=== PATIENT | female | born 1950 | race African-American/Black ===

== ENCOUNTER 2020-11-25 13:05 | Inpatient (IN) | payer MEDICARE, MEDICAID, SELFPAY ==
[2020-11-25] VITALS (8 sets, daily range): BP systolic 119–145; BP diastolic 59–70; PULSE 84–102; RESP 20–48; TEMP 36.4–38.8; O2SAT 1–97; BMI 31.8
--- NOTE | 2020-11-25 | ECG_ITS ---
Test Reason : SOB Blood Pressure : / mmHG Vent. Rate : 102 BPM Atrial Rate : 102 BPM P-R Int : 152 ms QRS Dur : 078 ms QT Int : 368 ms P-R-T Axes : 038 -11 078 degrees QTc Int : 479 ms Sinus tachycardia Anterior infarct , age undetermined Abnormal ECG When compared with ECG of 19-JUN-2010 11:46, Vent. rate has increased BY [address] now depressed in Anterior leads T wave inversion now evident in Anterior leads QT has lengthened Referred By: Generic ED Physician Electronically Signed By:YOEL STORY
--- NOTE | 2020-11-25 13:42 | XR_ITS ---
EXAMINATION: XR CHEST CLINICAL INFORMATION: Fever. COMPARISON: None TECHNIQUE: Frontal view of the chest was obtained. FINDINGS: The lungs are hypoexpanded with increased interstitial markings but no consolidation seen. Heart size, pulmonary vascularity is normal. No gross bony abnormality. XR/XR chest 1V IMPRESSION: Increased vascular markings question mild interstitial pneumonitis versus vascular congestion.
--- NOTE | 2020-11-25 13:45 | ED_ITS ---
HPI - General Adult General Chief complaint: Failure to Thrive Stated complaint: FAILURE TO THRIVE,COVID + Time Seen by Provider: 11/25/20 13:33 Source: family and EMS Mode of arrival: EMS History of Present Illness HPI narrative: 70-year-old female with a past medical history of CVA with right- sided residual deficits, DM, seizures, schizoaffective, HLD, GI bleed, CAD s/p NSTEMI, CKD, COPD, COVID-19 positive on 11/15 presenting to the ED from SNF for increased lethargy, fever, and decreased p.o. intake. History unobtainable from patient due to baseline CVA/aphasia Onset (ago): day(s) Related Data Home Medications Medication Instructions Recorded Confirmed acetaminophen 650 mg PO Q4H PRN 11/25/20 11/25/20 aspirin 81 mg PO BID 11/25/20 11/25/20 atorvastatin 40 mg PO BEDTIME 11/25/20 11/25/20 calcium carbonate [Tums 500] 500 mg PO DAILY PRN 11/25/20 11/25/20 carbamazepine 300 mg PO BID 11/25/20 11/25/20 docusate sodium [Colace] 100 mg PO BID 11/25/20 11/25/20 haloperidol 15 mg PO BEDTIME 11/25/20 11/25/20 insulin aspart U-100 [Novolog See Rx Instructions .ROUTE .COMPLEX 11/25/20 11/25/20 Flexpen U-100 Insulin] insulin detemir U-100 [Levemir 32 unit SUBCUT BEDTIME 11/25/20 11/25/20 Flexpen] lithium carbonate 150 mg PO BID 11/25/20 11/25/20 metoprolol tartrate 12.5 mg PO BID 11/25/20 11/25/20 sennosides [senna] 17 mg PO BEDTIME 11/25/20 11/25/20 Allergies Allergy/AdvReac Type Severity Reaction Status Date / Time No Known Allergies Allergy Unverified 07/25/20 15:34 Review of Systems Review of Systems: ROS unobtainable due to patient's baseline CVA and aphasia Yes all other systems are reviewed and are negative PMFSH Past Medical History Attestation statement: The following information was validated with the patient. Social History Social History Advance Directives: No Advance Directives Information Provided: No Physical Exam Vital Signs: Vital Signs: Last Vital Signs Temp 98.6 F 11/25/20 17:00 Pulse 96 11/25/20 17:00 Resp 30 H 11/25/20 17:00 BP 128/62 11/25/20 17:00 Pulse Ox 97 11/25/20 17:00 Body Mass Index 31.8 Const: General: lethargic Orientation/consciousness: lethargic HENMT: Head: Yes normal to inspection Ears: hearing grossly normal bilaterally General nose exam: Normal external nose present Face and sinus: Yes normal facial exam Eyes: General: appearance normal, both eyes and all related structures Pupils: Equal, round and reactive pupils present EOM: EOMs intact bilaterally Neck: Neck: Yes normal visual inspection Resp: Other: Coarse lung sounds throughout Effort & Inspection: normal respiratory effort Auscultation: diminished lung sounds (Bibasilar) Cardio: Rate: regular rate Heart sounds: S1 normal heart sound present and S2 normal heart sound present GI: Inspection: Yes normal to inspection Palpation (GI): Soft to palpation, nontender, no guarding and not rigid Skin: Rashes: no rashes Wounds: no wounds Neuro: Other: Does not follow commands. Aphasic (baseline). Right-sided deficits from prior CVA Cranial nerves: Yes Equal, round and reactive pupils present Extrem: General: Yes normal to inspection Course Course Course Narrative: * UA infected. Cefepime should cover. Lactic acid 1.6 XR chest 1V IMPRESSION: Increased vascular markings question mild interstitial pneumonitis versus vascular congestion. * Anion gap of 23 and elevated creatinine/BUN 33/1.82 likely from dehydration/ALT mildly elevated, LDH/CRP elevated > plan for admission for further management * CXR showing increased vascular marking question mild interstitial pneumonitis process could congestion. BNP 47 Medical Decision Making [facility] Narrative Medical decision making narrative: 70-year-old female with a past medical history of CVA with right-sided residual deficits, DM, seizures, schizoaffective, HLD, GI bleed, CAD s/p NSTEMI, CKD, COPD, COVID-19 positive on 11/15 presenting to the ED from SNF for increased lethargy, fever, and decreased p.o. intake. On exam febrile, tachycardic, tachypneic, sating 97% on nasal cannula, coarse lung sounds throughout, does not follow commands, lethargic. Per SNF notes and EMS pts R sided deficits are chronic, appears to be more lethargic than normal. Concern for worsening COVID-19/viral syndrome vs Aspiration pneumonia vs UTI/other infectious or metabolic etiologies including dehydration. Low concern for CVA Plan: EKG, labs, UA, CXR, lactic/blood cultures, empiric IV antibiotics, anticipated admission Lab Data Result diagrams: 11/25/20 15:09 11/25/20 16:02 Labs: Lab Results 11/25/20 11/25/20 11/25/20 Range/Units 14:08 15:09 15:09 WBC 7.9 (4.8-10.8) X10*3/uL RBC 4.07 L (4.20-5.50) X10*6/uL Hgb 12.3 (12.0-16.0) g/dl Hct 42.7 (37-47) % MCV 104.9 H (80-98) fL MCH 30.2 (27.0-33.0) pg MCHC 28.8 L (31.0-35.0) g/dl RDW 14.0 (11.0-16.0) % Plt Count 261 (160-400) X10*3/uL MPV 9.2 L (9.4-12.3) fL Immature Gran % (Auto) 0.9 H (0.0-0.4) % Neut % (Auto) 71.8 (45-73) % Lymph % (Auto) 22.9 (20-40) % [place] % (Auto) 4.3 (2-11) % Eos % (Auto) 0.1 (0-4) % Baso % (Auto) 0.0 (0-2) % Lymph # (Auto) 1.8 (1.2-4.9) X10*3/uL [place] # (Auto) 0.3 (0.1-1.2) X10*3/uL Eos # (Auto) 0.0 (0.0-0.4) X10*3/uL Baso # (Auto) 0.0 (0.0-0.2) X10*3/uL Abs Immat Gran (auto) 0.07 H (0.00-0.03) X10*3/uL Absolute Neuts (auto) 5.7 (2.0-8.3) X10*3/uL Absolute Nucleated RBC 0.000 (0.0-0.012) X10*3/uL Nucleated RBC % (auto) 0.0 (0.0-0.2) /100WBC Smear Tech's Comments VERIFIED PT (10.8-13.0) SEC INR (0.9-1.1) APTT (24.1-38.0) SEC Sodium (135-145) mmol/L Potassium (3.3-5.1) mmol/l Chloride (96-108) mmol/L Carbon Dioxide (22-29) mmol/L Anion Gap (12-20) BUN (9-16) mg/dL Creatinine (0.5-1.4) mg/dL Estim Creat Clear Calc Estimated GFR Random Glucose (60-115) mg/dL Lactic Acid 1.6 (0.5-2.0) mmol/L Calcium (8.4-10.2) mg/dL Magnesium (1.6-2.6) mg/dL Ferritin (10-250) ng/mL Total Bilirubin (0.0-1.0) mg/dL Direct Bilirubin (0.0-0.5) mg/dL AST (5-31) U/L ALT (0-31) U/L Alkaline Phosphatase (39-117) U/L Lactate Dehydrogenase (122-220) U/L C-Reactive Protein (< or = 0.50) mg/dL B-Natriuretic Peptide (<100) pg/mL Total Protein (6.5-8.0) g/dL Albumin (3.5-5.0) g/dL Lipase (8-78) U/L Procalcitonin ng/mL Urine Color YELLOW Urine Appearance CLOUDY Urine pH 5.5 (5.0-8.0) Ur Specific [place] >= 1.030 H (1.005-1.025) Urine Protein 2+ H (NEG-TRACE) MG/DL Urine Glucose (UA) NEG (NEG) MG/DL Urine Ketones 15 (NEG) MG/DL Urine Blood 3+ H (NEG) Urine Nitrite NEG (NEG) Ur Leukocyte Esterase TRACE H (NEG) Urine RBC 76-150 H (0) /HPF Urine WBC 15-29 H (0-4) /HPF Ur Squamous Epith Cells 1+ /LPF Urine Bacteria 3+ /LPF 11/25/20 11/25/20 11/25/20 Range/Units 15:09 16:02 16:02 WBC (4.8-10.8) X10*3/uL RBC (4.20-5.50) X10*6/uL Hgb (12.0-16.0) g/dl Hct (37-47) % MCV (80-98) fL MCH (27.0-33.0) pg MCHC (31.0-35.0) g/dl RDW (11.0-16.0) % Plt Count (160-400) X10*3/uL MPV (9.4-12.3) fL Immature Gran % (Auto) (0.0-0.4) % Neut % (Auto) (45-73) % Lymph % (Auto) (20-40) % [place] % (Auto) (2-11) % Eos % (Auto) (0-4) % Baso % (Auto) (0-2) % Lymph # (Auto) (1.2-4.9) X10*3/uL [place] # (Auto) (0.1-1.2) X10*3/uL Eos # (Auto) (0.0-0.4) X10*3/uL Baso # (Auto) (0.0-0.2) X10*3/uL Abs Immat Gran (auto) (0.00-0.03) X10*3/uL Absolute Neuts (auto) (2.0-8.3) X10*3/uL Absolute Nucleated RBC (0.0-0.012) X10*3/uL Nucleated RBC % (auto) (0.0-0.2) /100WBC Smear Tech's Comments PT 15.3 H (10.8-13.0) SEC INR 1.3 H (0.9-1.1) APTT 29.1 (24.1-38.0) SEC Sodium 148 H (135-145) mmol/L Potassium 5.4 H (3.3-5.1) mmol/l Chloride 113 H (96-108) mmol/L Carbon Dioxide 17 L (22-29) mmol/L Anion Gap 23 H (12-20) BUN 33 H (9-16) mg/dL Creatinine 1.82 H (0.5-1.4) mg/dL Estim Creat Clear Calc 31.3 Estimated GFR 27 Random Glucose 300 H (60-115) mg/dL Lactic Acid (0.5-2.0) mmol/L Calcium 7.8 L (8.4-10.2) mg/dL Magnesium 2.7 H (1.6-2.6) mg/dL Ferritin (10-250) ng/mL Total Bilirubin 0.3 (0.0-1.0) mg/dL Direct Bilirubin 0.3 (0.0-0.5) mg/dL AST 54 H (5-31) U/L ALT 39 H (0-31) U/L Alkaline Phosphatase 104 (39-117) U/L Lactate Dehydrogenase 422 H (122-220) U/L C-Reactive Protein 18.06 H (< or = 0.50) mg/dL B-Natriuretic Peptide 47 (<100) pg/mL Total Protein 6.6 (6.5-8.0) g/dL Albumin 3.3 L (3.5-5.0) g/dL Lipase (8-78) U/L Procalcitonin ng/mL Urine Color Urine Appearance Urine pH (5.0-8.0) Ur Specific [place] (1.005-1.025) Urine Protein (NEG-TRACE) MG/DL Urine Glucose (UA) (NEG) MG/DL Urine Ketones (NEG) MG/DL Urine Blood (NEG) Urine Nitrite (NEG) Ur Leukocyte Esterase (NEG) Urine RBC (0) /HPF Urine WBC (0-4) /HPF Ur Squamous Epith Cells /LPF Urine Bacteria /LPF 11/25/20 11/25/20 Range/Units 16:02 16:02 WBC (4.8-10.8) X10*3/uL RBC (4.20-5.50) X10*6/uL Hgb (12.0-16.0) g/dl Hct (37-47) % MCV (80-98) fL MCH (27.0-33.0) pg MCHC (31.0-35.0) g/dl RDW (11.0-16.0) % Plt Count (160-400) X10*3/uL MPV (9.4-12.3) fL Immature Gran % (Auto) (0.0-0.4) % Neut % (Auto) (45-73) % Lymph % (Auto) (20-40) % [place] % (Auto) (2-11) % Eos % (Auto) (0-4) % Baso % (Auto) (0-2) % Lymph # (Auto) (1.2-4.9) X10*3/uL [place] # (Auto) (0.1-1.2) X10*3/uL Eos # (Auto) (0.0-0.4) X10*3/uL Baso # (Auto) (0.0-0.2) X10*3/uL Abs Immat Gran (auto) (0.00-0.03) X10*3/uL Absolute Neuts (auto) (2.0-8.3) X10*3/uL Absolute Nucleated RBC (0.0-0.012) X10*3/uL Nucleated RBC % (auto) (0.0-0.2) /100WBC Smear Tech's Comments PT (10.8-13.0) SEC INR (0.9-1.1) APTT (24.1-38.0) SEC Sodium (135-145) mmol/L Potassium (3.3-5.1) mmol/l Chloride (96-108) mmol/L Carbon Dioxide (22-29) mmol/L Anion Gap (12-20) BUN (9-16) mg/dL Creatinine (0.5-1.4) mg/dL Estim Creat Clear Calc Estimated GFR Random Glucose (60-115) mg/dL Lactic Acid (0.5-2.0) mmol/L Calcium (8.4-10.2) mg/dL Magnesium (1.6-2.6) mg/dL Ferritin 1163 H (10-250) ng/mL Total Bilirubin (0.0-1.0) mg/dL Direct Bilirubin (0.0-0.5) mg/dL AST (5-31) U/L ALT (0-31) U/L Alkaline Phosphatase (39-117) U/L Lactate Dehydrogenase (122-220) U/L C-Reactive Protein (< or = 0.50) mg/dL B-Natriuretic Peptide (<100) pg/mL Total Protein (6.5-8.0) g/dL Albumin (3.5-5.0) g/dL Lipase 86 H (8-78) U/L Procalcitonin 1.55 ng/mL Urine Color Urine Appearance Urine pH (5.0-8.0) Ur Specific [place] (1.005-1.025) Urine Protein (NEG-TRACE) MG/DL Urine Glucose (UA) (NEG) MG/DL Urine Ketones (NEG) MG/DL Urine Blood (NEG) Urine Nitrite (NEG) Ur Leukocyte Esterase (NEG) Urine RBC (0) /HPF Urine WBC (0-4) /HPF Ur Squamous Epith Cells /LPF Urine Bacteria /LPF ECG Data Attestation: I personally reviewed and interpreted this ECG as follows: Interpretation: EKG showing sinus tachycardia with a rate of 102. No STEMI. Artifact present. Discharge Plan Discharge Clinical Impression: Acute UTI, LANIE (acute kidney injury) Patient Disposition: Admitted As Inpatient
[2020-11-25 14:27] LABS: Glucose Urine UA NEG (NEG); Leukocyte Esterase Urine TRACE (NEG); Nitrite Urine NEG (NEG); PH 5.5 (5.0-8.0); Specific Gravity - Urine >= 1.030 (1.005-1.025); Urine Blood 3+ (NEG); Urine Ketones 15 MG/DL (NEG); Urine Protein 2+ MG/DL (NEG-TRACE)
[2020-11-25 14:28] LABS: Appearance Urine CLOUDY; Color Urine YELLOW
[2020-11-25 14:37] LABS: Bacteria Urine 3+ /LPF; Squamous Epithelial Cell Urine 1+ /LPF
--- NOTE | 2020-11-25 14:41 | PC.NURSE ---
pt difficult iv stick, multiple attempts unsuccessful, eugenia adams to attempt iv access via us guide.
[2020-11-25 15:19] LABS: Eosinophils Percent Auto 0.1 % (0-4); Hematocrit 42.7 % (37-47); Hemoglobin 12.3 g/dl (12.0-16.0); Imm Gran Abs Auto 0.07 X10*3/uL (0.00-0.03); Imm Gran Pct Auto 0.9 % (0.0-0.4); Lymphocytes Absolute Auto 1.8 X10*3/uL (1.2-4.9); Lymphocytes Percent Auto 22.9 % (20-40); MANUAL DIFF FLAG SCAN; Mean Corpuscular HGB Conc 28.8 g/dl (31.0-35.0); Mean Corpuscular Hemoglobin 30.2 pg (27.0-33.0); Mean Corpuscular Volume 104.9 fL (80-98); Mean Platelet Volume 9.2 fL (9.4-12.3); Monocytes Absolute Auto 0.3 X10*3/uL (0.1-1.2); Monocytes Percent Auto 4.3 % (2-11); Neutrophils Absolute Auto 5.7 X10*3/uL (2.0-8.3); Neutrophils Percent Auto 71.8 % (45-73); Platelet Count 261 X10*3/uL (160-400); Red Blood Count 4.07 X10*6/uL (4.20-5.50); SCAN SMEAR FLAG 1; White Blood Count 7.9 X10*3/uL (4.8-10.8)
[2020-11-25] MEDS: cefEPime HCl 2 GM in 0.9 % Sodium Chloride 50 ML IV (15:30)
[2020-11-25] MEDS: 0.9 % Sodium Chloride 500 ML 999 ML IV ×2 (15:31→17:24)
[2020-11-25 15:49] LABS: Lactic Acid 1.6 mmol/L (0.5-2.0)
[2020-11-25 15:58] LABS: SLIDE REVIEW VERIFIED
[2020-11-25 15:59] LABS: B Type Natriuretic Peptide 47 pg/mL (<100)
[2020-11-25 16:16] LABS: INTERNATIONAL NORM RATIO 1.3 (0.9-1.1); Prothrombin Time 15.3 SEC (10.8-13.0)
[2020-11-25 16:18] LABS: Partial Thromboplastin Time 29.1 SEC (24.1-38.0)
[2020-11-25 16:41] LABS: Alanine Aminotransferase 39 U/L (0-31); Albumin Level 3.3 g/dL (3.5-5.0); Alkaline Phosphatase 104 U/L (39-117); Anion Gap 23 (12-20); Aspartate Amino Transferase 54 U/L (5-31); Bilirubin Direct 0.3 mg/dL (0.0-0.5); Bilirubin Total 0.3 mg/dL (0.0-1.0); Blood Urea Nitrogen 33 mg/dL (9-16); C Reactive Protein 18.06 mg/dL (< or = 0.50); Calcium 7.8 mg/dL (8.4-10.2); Carbon Dioxide 17 mmol/L (22-29); Chloride 113 mmol/L (96-108); Creatinine Clr Calc Pharmacy 31.3; Estimated Glomerular Filt Rate 27; Glucose Random 300 mg/dL (60-115); Lactate Dehydrogenase 422 U/L (122-220); Magnesium 2.7 mg/dL (1.6-2.6); Potassium 5.4 mmol/l (3.3-5.1); Sodium 148 mmol/L (135-145); Total Protein 6.6 g/dL (6.5-8.0)
[2020-11-25 16:53] LABS: Lipase 86 U/L (8-78)
[2020-11-25 16:54] LABS: Procalcitonin 1.55 ng/mL
[2020-11-25 16:56] LABS: Ferritin 1163 ng/mL (10-250)
--- NOTE | 2020-11-25 17:02 | PC.NURSE ---
us guided iv appears to have infiltrated. provider aware. will attempt for further access.
--- NOTE | 2020-11-25 19:58 | P.HPHOSP_ITS ---
History of Present Illness Date of Service: 11/25/20 Chief Complaint: Lethargy 70 year old women presenting from residential facility with increased lethargy, fever and decreased oral intake. 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 She was diagnosed with COVID and early November. She was noted to have a fever of 102, heart rate 102, respiratory rate 30. She was not noted to be hypoxic at any point. Her sodium was elevated at 148, potassium 5.4, creatinine 1.2 with history of chronic kidney disease. Ferritin 1163, LDH 422, CRP 18.06. Chest x-ray was negative for consolidation or effusion. in the ER, she received Tylenol, cefepime, albuterol, acetaminophen, IV fluid. She will be admitted for further management and treatment of sepsis secondary to UTI. Review of Systems Review of Systems: Yes Unobtainable due to mental status [facility] Medical History (Updated 11/25/20 @ 20:03 by Michelle Chavis NP) Anemia CAD (coronary artery disease) CKD (chronic kidney disease) COPD (chronic obstructive pulmonary disease) CVA (cerebral vascular accident) Diabetes mellitus Diabetic neuropathy GI bleed Hyperlipidemia NSTEMI (non-ST elevated myocardial infarction) Schizoaffective disorder Social History Advance Directives: No Advance Directives Information Provided: No Meds Allergies Allergy/AdvReac Type Severity Reaction Status Date / Time No Known Allergies Allergy Unverified 07/25/20 15:34 Home Medications Medication Instructions Recorded Confirmed Type acetaminophen 650 mg PO Q4H PRN 11/25/20 11/25/20 History aspirin 81 mg PO BID 11/25/20 11/25/20 History atorvastatin 40 mg PO BEDTIME 11/25/20 11/25/20 History calcium carbonate [Tums 500] 500 mg PO DAILY PRN 11/25/20 11/25/20 History carbamazepine 300 mg PO BID 11/25/20 11/25/20 History docusate sodium [Colace] 100 mg PO BID 11/25/20 11/25/20 History haloperidol 15 mg PO BEDTIME 11/25/20 11/25/20 History insulin aspart U-100 [Novolog See Rx Instructions .ROUTE .COMPLEX 11/25/20 11/25/20 History Flexpen U-100 Insulin] insulin detemir U-100 [Levemir 32 unit SUBCUT BEDTIME 11/25/20 11/25/20 History Flexpen] lithium carbonate 150 mg PO BID 11/25/20 11/25/20 History metoprolol tartrate 12.5 mg PO BID 11/25/20 11/25/20 History sennosides [senna] 17 mg PO BEDTIME 11/25/20 11/25/20 History Physical Exam Vital Signs and Narrative: Vital Signs: Last Vital Signs Temp 98.6 F 11/25/20 17:00 Pulse 96 11/25/20 17:00 Resp 30 H 11/25/20 17:00 BP 128/62 11/25/20 17:00 Pulse Ox 97 11/25/20 17:00 Body Mass Index 31.8 Sleeping head is normocephalic atraumatic eyes pupils are PERRLA sclera is anicteric mouth throat mucous membranes are intact and Dry neck is supple no lymphadenopathy, no JVD noted lung Normal expansion heart regular rate rhythm, clear S1, S2 positive bowel sounds neuro aphasic Results Labs CBC and Chem 7: 11/25/20 15:09 11/25/20 16:02 Labs: Laboratory Results - last 24 hr 11/25/20 11/25/20 11/25/20 14:08 15:09 15:09 MCV 104.9 H MCH 30.2 MCHC 28.8 L RDW 14.0 Plt Count 261 MPV 9.2 L Immature Gran % (Auto) 0.9 H Neut % (Auto) 71.8 Lymph % (Auto) 22.9 Petroleum % (Auto) 4.3 Eos % (Auto) 0.1 Baso % (Auto) 0.0 Lymph # (Auto) 1.8 [place] # (Auto) 0.3 Eos # (Auto) 0.0 Baso # (Auto) 0.0 Abs Immat Gran (auto) 0.07 H Absolute Neuts (auto) 5.7 Absolute Nucleated RBC 0.000 Nucleated RBC % (auto) 0.0 Smear Tech's Comments VERIFIED PT INR APTT Anion Gap Estim Creat Clear Calc Estimated GFR Random Glucose Lactic Acid 1.6 Calcium Magnesium Ferritin Total Bilirubin Direct Bilirubin AST ALT Alkaline Phosphatase Lactate Dehydrogenase C-Reactive Protein B-Natriuretic Peptide Total Protein Albumin Lipase Procalcitonin Urine Color YELLOW Urine Appearance CLOUDY Urine pH 5.5 Ur Specific [place] >= 1.030 H Urine Protein 2+ H Urine Glucose (UA) NEG Urine Ketones 15 Urine Blood 3+ H Urine Nitrite NEG Ur Leukocyte Esterase TRACE H Urine RBC 76-150 H Urine WBC 15-29 H Ur Squamous Epith Cells 1+ Urine Bacteria 3+ 11/25/20 11/25/20 11/25/20 15:09 16:02 16:02 MCV MCH MCHC RDW Plt Count MPV Immature Gran % (Auto) Neut % (Auto) Lymph % (Auto) Petroleum % (Auto) Eos % (Auto) Baso % (Auto) Lymph # (Auto) Pet[place] # (Auto) Eos # (Auto) Baso # (Auto) Abs Immat Gran (auto) Absolute Neuts (auto) Absolute Nucleated RBC Nucleated RBC % (auto) Smear Tech's Comments PT 15.3 H INR 1.3 H APTT 29.1 Anion Gap 23 H Estim Creat Clear Calc 31.3 Estimated GFR 27 Random Glucose 300 H Lactic Acid Calcium 7.8 L Magnesium 2.7 H Ferritin Total Bilirubin 0.3 Direct Bilirubin 0.3 AST 54 H ALT 39 H Alkaline Phosphatase 104 Lactate Dehydrogenase 422 H C-Reactive Protein 18.06 H B-Natriuretic Peptide 47 Total Protein 6.6 Albumin 3.3 L Lipase Procalcitonin Urine Color Urine Appearance Urine pH Ur Specific [place] Urine Protein Urine Glucose (UA) Urine Ketones Urine Blood Urine Nitrite Ur Leukocyte Esterase Urine RBC Urine WBC Ur Squamous Epith Cells Urine Bacteria 11/25/20 11/25/20 16:02 16:02 MCV MCH MCHC RDW Plt Count MPV Immature Gran % (Auto) Neut % (Auto) Lymph % (Auto) Pet[place] % (Auto) Eos % (Auto) Baso % (Auto) Lymph # (Auto) Pet[place] # (Auto) Eos # (Auto) Baso # (Auto) Abs Immat Gran (auto) Absolute Neuts (auto) Absolute Nucleated RBC Nucleated RBC % (auto) Smear Tech's Comments PT INR APTT Anion Gap Estim Creat Clear Calc Estimated GFR Random Glucose Lactic Acid Calcium Magnesium Ferritin 1163 H Total Bilirubin Direct Bilirubin AST ALT Alkaline Phosphatase Lactate Dehydrogenase C-Reactive Protein B-Natriuretic Peptide Total Protein Albumin Lipase 86 H Procalcitonin 1.55 Urine Color Urine Appearance Urine pH Ur Specific [place] Urine Protein Urine Glucose (UA) Urine Ketones Urine Blood Urine Nitrite Ur Leukocyte Esterase Urine RBC Urine WBC Ur Squamous Epith Cells Urine Bacteria Imaging Radiologist's Impressions: Impressions Chest X-Ray 11/25/20 13:42 IMPRESSION: Increased vascular markings question mild interstitial pneumonitis versus vascular congestion. Assessment and Plan (1) Acute UTI: Status: Acute 70 year old women admitted with multiple issues including Sepsis secondary to UTI. Sepsis. Fever, tachycardia, tachypnea, UTI. Normal lactic acid, follow blood cultures. UTI. Rocephin. Follow urine cultures. LANIE. Likely from dehydration. IV fluids. Hyperkalemia. Kayexalate. Follow BMP Hypernatremia. Mild, likely from dehydration. Recheck this evening. COVID 19. Diagnosed previously. No hypoxia noted. Hold odd on antibiotics and steroids for now. Diabetes. Sliding scale, ADA diet CVA. Aphasic, left sided paraplegia. Chronic. HLD. Aspirin and statin DVT prophylaxis with Heparin Discussed with Dr. Akilah Kwok code
[2020-11-25] MEDS: Insulin Glargine,Hum.rec.anlog 100 UNIT/ML 10 ML VIAL 22 UNIT SUBCUT (21:02)
[2020-11-25] MEDS: Sodium Polystyrene Sulfon/Sorb 15 GM/60 ML ORAL.SUSP PO (21:06)
--- NOTE | 2020-11-25 21:13 | PC.NURSE ---
pt very sleepy, spits her medications out. pt sat 93% on 1l NC.
--- NOTE | 2020-11-25 21:14 | PC.NURSE ---
PT HAS NO IV SITE. PT IS A KNOWN DIFFICULT STICK.
[2020-11-25] MEDS: Heparin Sodium,Porcine 5,000 UNIT/ML VIAL 5000 UNIT SUBCUT (21:57)
[2020-11-25] MEDS: Insulin Lispro 100 UNIT/ML 3 ML VIAL SUBCUT (21:57)
--- NOTE | 2020-11-25 22:03 | PC.NURSE ---
PT IS SLEEPING UNABLE TO STAY AWAKE TO TAKE PO MEDICATIONS.
[2020-11-25 22:31] LABS: Glucose, Whole Blood 277 mg/dL (60-115)
[2020-11-26] VITALS (7 sets, daily range): BP systolic 113–151; BP diastolic 60–76; PULSE 62–106; RESP 16–20; TEMP 36.4–37.6; O2SAT 90–100; BMI 31.8
--- NOTE | 2020-11-26 | CT_ITS ---
EXAMINATION: CT HEAD WITHOUT CONTRAST CLINICAL INFORMATION: Encephalopathy COMPARISON: 06/20/2010 TECHNIQUE: Contiguous axial imaging was performed from the skull base to vertex without intravenous contrast. This CT examination was performed using dose optimization techniques as appropriate, variously including the following: * Automated exposure control * Adjustment of mA and/or kV according to patient size (this includes techniques or standardized protocols for targeted exams where dose is matched to indication/reason for exam; i.e. extremities or head) Use of iterative reconstruction technique DLP: 828 mGy-cm. FINDINGS: Chronic large left MCA territory infarct with encephalomalacia. Ex vacuo dilatation of the left lateral ventricle. There is no evidence of acute intracranial hemorrhage or territorial infarction. No abnormal mass effect or midline shift is seen. Eduardo to white matter differentiation is otherwise well preserved. No extra-axial fluid collections are identified. No hydrocephalus. Proportional prominence of the ventricles and sulcal spaces is consistent with mild volume loss. Patchy periventricular and deep white matter hypoattenuation is consistent with mild small vessel ischemic changes. Chronic lacunar infarct in the head of the right caudate. The osseous structures and soft tissues are normal. The mastoid air cells are well aerated. There is complete opacification of the right maxillary sinus. Partially opacified anterior right ethmoid air cells. CT/CT head/brain wo con IMPRESSION: No acute intracranial pathology. Chronic left MCA territory infarct.
[2020-11-26 06:06] LABS: Glucose, Whole Blood 228 mg/dL (60-115)
--- NOTE | 2020-11-26 06:19 | PC.NURSE ---
hospitalist called and made aware pt is not taking her medications and spits them out. pt tongue is coated in white and dry. pt doesnt like anything in her mouth and this may be why. pt has no running iv and iv and labs are difficult to obtain. hospitalist made aware. poc taken and holding no changes noted.
[2020-11-26 06:37] LABS: MANUAL DIFF FLAG NO
[2020-11-26 07:04] LABS: Anion Gap 19 (12-20); Blood Urea Nitrogen 31 mg/dL (9-16); Calcium 7.9 mg/dL (8.4-10.2); Carbon Dioxide 14 mmol/L (22-29); Chloride 119 mmol/L (96-108); Creatinine Clr Calc Pharmacy 37.9; Estimated Glomerular Filt Rate 34; Glucose Random 277 mg/dL (60-115); Potassium 5.1 mmol/l (3.3-5.1); Sodium 147 mmol/L (135-145)
[2020-11-26 07:41] LABS: Basophils Percent Auto 0.5 % (0-2); Eosinophils Absolute Auto 0.1 X10*3/uL (0.0-0.4); Eosinophils Percent Auto 0.8 % (0-4); Hematocrit 42.1 % (37-47); Hemoglobin 12.2 g/dl (12.0-16.0); Imm Gran Abs Auto 0.12 X10*3/uL (0.00-0.03); Imm Gran Pct Auto 1.5 % (0.0-0.4); Lymphocytes Absolute Auto 2.3 X10*3/uL (1.2-4.9); Mean Corpuscular Hemoglobin 30.7 pg (27.0-33.0); Mean Corpuscular Volume 105.8 fL (80-98); Monocytes Absolute Auto 0.5 X10*3/uL (0.1-1.2); Monocytes Percent Auto 5.8 % (2-11); Neutrophils Absolute Auto 4.9 X10*3/uL (2.0-8.3); Neutrophils Percent Auto 62.4 % (45-73); Platelet Count 255 X10*3/uL (160-400); Red Blood Count 3.98 X10*6/uL (4.20-5.50); Red Cell Distribution Width 14.4 % (11.0-16.0); White Blood Count 7.8 X10*3/uL (4.8-10.8)
[2020-11-26 08:24] LABS: Glucose, Whole Blood 207 mg/dL (60-115)
[2020-11-26 09:07] LABS: Glucose, Whole Blood 259 mg/dL (60-115)
[2020-11-26] MEDS: Insulin Lispro 100 UNIT/ML 3 ML VIAL SUBCUT ×3 (09:22→17:27)
[2020-11-26] MEDS: cefTRIAXone sodium 1 GM in 0.9 % Sodium Chloride 50 ML IV (09:22)
[2020-11-26] MEDS: Heparin Sodium,Porcine 5,000 UNIT/ML VIAL 5000 UNIT SUBCUT (09:23)
[2020-11-26] MEDS: 0.9 % Sodium Chloride Flush 3 ML SYRINGE IVFLUSH (09:28)
[2020-11-26] MEDS: Dextrose 5 % and 0.9 % NaCl 1,000 ML 80 ML IVCONT (09:29)
--- NOTE | 2020-11-26 10:43 | PC.NURSE ---
pt from ER. She is non verbal, also not able to swallow meds at this time. Pt yells when any care is performed. She has thick white coating to tongue, cried out when mouth care performed. Also cries out with repositioning. Pt has excoriated area to bilateral buttocks with open area to right buttock. wound present on arrival. Pictures obtained and placed in chart. Will continue to observe
--- NOTE | 2020-11-26 10:57 | MHC.CM.PN ---
CM spoke with patient's sister/HCP Henna Joya [phone] who reports patient is bedbound, aphasic r/t old CVA and dependent for care. Patient is a resident at [facility] and discharge plan is to return there. Referral made via allscripts. Patient will need BLS transport. Henna reports she is patient's HCP, copy requested. IMM addressed. CM will continue to follow for discharge needs.
--- NOTE | 2020-11-26 11:17 | PC.NURSE ---
pt has sodium 147, diabetic with elevated blood sugar today. IVF D5 NS running as orderedat 80ml/hr. Asked MD to clarify fluid order based on preceeding labs, no new orders. Fluid running.
[2020-11-26 11:53] LABS: Glucose, Whole Blood 255 mg/dL (60-115)
--- NOTE | 2020-11-26 14:26 | HO.PM.IMPN ---
Subjective Subjective Date of Service: 11/26/20 Interval History: Patient seen and examined at bedside Patient continues to remain encephalopathy Review of Systems Review of Systems: Yes Unobtainable due to mental status Physical Exam Vital Signs: Vital Signs: Last Vital Signs Temp 97.5 F 11/26/20 12:00 Pulse 92 11/26/20 12:00 Resp 18 11/26/20 12:00 BP 151/76 H 11/26/20 12:00 Pulse Ox 95 11/26/20 12:00 Body Mass Index 31.8 Const: General: lethargic Orientation/consciousness: lethargic HENMT: Head: Yes normal to inspection Ears: hearing grossly normal bilaterally General nose exam: Normal external nose present Face and sinus: Yes normal facial exam Eyes: General: appearance normal, both eyes and all related structures Pupils: Equal, round and reactive pupils present EOM: EOMs intact bilaterally Neck: Neck: Yes normal visual inspection Resp: Other: Coarse lung sounds throughout Effort & Inspection: normal respiratory effort Auscultation: diminished lung sounds (Bibasilar) Cardio: Rate: regular rate Heart sounds: S1 normal heart sound present and S2 normal heart sound present GI: Inspection: Yes normal to inspection Palpation (GI): Soft to palpation, nontender, no guarding and not rigid Skin: Rashes: no rashes Wounds: no wounds Neuro: Other: Does not follow commands. Aphasic (baseline). Right-sided deficits from prior CVA Cranial nerves: Yes Equal, round and reactive pupils present Extrem: General: Yes normal to inspection Objective Data Current Medications Generic Name Dose Route Start Last Admin Trade Name Freq PRN Reason Stop Dose Admin Acetaminophen 650 mg 11/25/20 20:27 Acetaminophen 325 Mg Tablet PO Q6H PRN Pain, Mild (Pain Scale 1-3) Acetaminophen 650 mg 11/25/20 20:27 Acetaminophen 325 Mg Tablet PO Q4H PRN Pain Aspirin 81 mg 11/25/20 21:00 11/26/20 10:48 Aspirin 81 Mg Tab.Chew PO Not Given BID TIM Atorvastatin Calcium 40 mg 11/25/20 21:00 11/26/20 09:12 Atorvastatin Calcium 40 Mg Tablet PO Not Given BEDTIME TIM Calcium Carbonate 750 mg 11/25/20 20:46 Calcium Carbonate 750 Mg Tab.Chew PO DAILY PRN Acid Reflux Carbamazepine 300 mg 11/25/20 21:00 11/26/20 10:49 Carbamazepine 100 Mg Tab.Chew PO Not Given BID [facility] Docusate Sodium 100 mg 11/25/20 21:00 11/26/20 10:49 Docusate Sodium 100 Mg Capsule PO Not Given BID [facility] Haloperidol 15 mg 11/25/20 21:00 11/26/20 09:12 Haloperidol 5 Mg Tablet PO Not Given BEDTIME [facility] Heparin Sodium (Porcine) 5,000 unit 11/25/20 21:00 11/26/20 09:23 Heparin Sodium,Porcine 5,000 Unit/Ml Vial SUBCUT 5,000 unit Q12H [facility] Administration Ceftriaxone Sodium 1 gm/ 50 mls @ 100 mls/hr 11/26/20 09:00 11/26/20 10:50 Sodium Chloride IV Infused Q24H [facility] Infusion Dextrose/Sodium Chloride 1,000 mls @ 80 mls/hr 11/26/20 14:30 D51/2ns IVCONT .[id number] [facility] Insulin Glargine 22 unit 11/25/20 21:00 11/25/20 21:02 Insulin Glargine,Hum.Rec.Anlog 100 Unit/Ml 10 Ml Vial SUBCUT 22 unit BEDTIME [facility] Administration Insulin Human Lispro 0 unit 11/25/20 21:00 11/26/20 12:11 Insulin Lispro 100 Unit/Ml 3 Ml Vial SUBCUT 6 unit QIDACHS [facility] Administration Protocol [place] Carbonate 150 mg 11/25/20 21:00 11/26/20 10:49 [place] Carbonate 300 Mg Tablet PO Not Given BID [facility] Metoprolol Tartrate 12.5 mg 11/25/20 21:00 11/26/20 10:49 Metoprolol Tartrate 25 Mg Tablet PO Not Given BID [facility] Protocol Ondansetron HCl 4 mg 11/25/20 20:27 Ondansetron Hcl 4 Mg/2 Ml Vial IVPUSH Q8H PRN Nausea and Vomiting Pharmacy Consult 1 each 11/25/20 13:42 Consult Rx Perform Med Rec MISCELLANE ONCE PRN Consult order Senna 17 mg 11/25/20 21:00 11/25/20 22:45 Sennosides 8.6 Mg Tablet PO Not Given BEDTIME [facility] Sodium Chloride 3 ml 11/26/20 00:00 11/26/20 09:28 0.9 % Sodium Chloride Flush 3 Ml Syringe IVFLUSH 3 ml QSHIFT [facility] Administration Labs CBC & Chem 7: 01/19/21 06:34 11/26/20 06:34 Microbiology Microbiology Results: Microbiology 11/25/20 00:00 Urine Virgen Port Urine Culture - Preliminary Gram negative alessia Assessment and Plan (1) Acute UTI: Status: Acute Assessment and Plan: 70 year old women admitted with multiple issues including Sepsis secondary to UTI. Sepsis secondary to UTI Continue IV antibiotic Follow-up cultures Supportive manage LANIE. Likely from dehydration. Continue IV fluids. Monitor kidney function Avoid nephrotoxic Toxic metabolic encephalopathy Patient continues to remain lethargic moaning Not following commands Treat underlying condition Monitor mental status closely Will check ammonia level and ABG Will check CT head Hyperkalemia resolved Monitor electrolytes Hypernatremia. Sodium 148 today Continue D5 half NS Monitor sodium Avoid over-correction COVID 19. Diagnosed previously. No hypoxia noted. Hold odd on antibiotics and steroids for now. Continue supportive manage Diabetes. Continue Sliding scale, ADA diet CVA. Aphasic, left sided paraplegia. Chronic. Continue aspirin and statin HLD. statin DVT prophylaxis with Heparin
[2020-11-26] MEDS: Dextrose 5 % and 0.45 % NaCl 1,000 ML 80 ML IVCONT (14:36)
--- NOTE | 2020-11-26 14:49 | PC.NURSE ---
pt will not take any PO intake. She yells and turns her head when offered any food or fluid. Performed mouith care with soft mouth swabs, pt yelled and resisted care.
[2020-11-26 15:35] LABS: Ammonia 60 umol/L (13-55)
[2020-11-26 16:48] LABS: Glucose, Whole Blood 241 mg/dL (60-115)
--- NOTE | 2020-11-26 18:08 | PC.NURSE ---
Pt to CT scan with 2 staff and returned to room. Pt then repositioned to side. She continues to refuse any PO food or fluid, resists mouth care. HOB elevated. Will continue to monitor
[2020-11-26 20:34] LABS: Glucose, Whole Blood 184 mg/dL (60-115)
--- NOTE | 2020-11-27 | CT_ITS ---
EXAMINATION: CT ABDOMEN AND PELVIS WITHOUT CONTRAST CLINICAL INFORMATION: UTIs/sepsis. Elevated LFTs. Rule out infection. Stones. COMPARISON: No priors. TECHNIQUE: Multidetector volumetric imaging was performed from the superior aspect of the liver through the pubic symphysis. Sagittal and coronal reformatted images were obtained on the technologist's workstation. This CT examination was performed using dose optimization techniques as appropriate, variously including the following: *Automated exposure control *Adjustment of mA and/or kV according to patient size (this includes techniques or standardized protocols for targeted exams where dose is matched to indication/reason for exam; i.e. extremities or head) *Use of iterative reconstruction technique DLP: 1058 mGy-cm FINDINGS: Examination is limited in the absence of intravenous contrast and motion artifact in the upper abdomen. LINES AND TUBES: Monitoring devices overlie the upper abdomen and lower chest on the nursery rn view. Right mid abdominal and right lower quadrant surgical clips noted. LOWER THORAX: Bibasilar ground glass opacifications of infectious or inflammatory etiology. Superimposed bibasilar subsegmental atelectasis and parenchymal scarring. Heart is normal size. No pericardial effusion or thickening. Coronary vascular calcifications. HEPATOBILIARY: The liver is normal in size and contour. Areas of parenchymal attenuation less than 40 Hounsfield units on this noncontrast examination compatible with steatotic changes. No focal hepatic lesions. The gallbladder is present and otherwise unremarkable. No intrahepatic or extra hepatic biliary dilatation. SPLEEN: Normal. PANCREAS: Normal. ADRENALS: Evaluation is limited secondary to motion artifact. Within this limitation adrenal glands are grossly normal. KIDNEYS/URETERS: Punctate nonobstructive right renal calculi. No hydronephrosis. BLADDER: Urinary bladder is decompressed by Virgen catheter. PELVIC ORGANS: Uterus is normal in appearance. No adnexal mass. GI TRACT: No dilated or thick walled loops of bowel. Surgical clips are noted around the cecum small volume of retained oral contrast is noted in the cecum (5:41/94). A few left colon diverticula. No evidence of diverticulitis. The appendix is not definitively visualized. Moderate retained rectal stool burden. PERITONEUM/RETROPERITONEUM AND MESENTERY: No intraperitoneal free air or fluid. LYMPH NODES: No pathologically enlarged lymph nodes. VESSELS: Heavy aortoiliac atherosclerotic calcifications. BONES AND SOFT TISSUES: No aggressive osseous lesions. L4-L5 and L5-S1 facet arthropathy. Mild fatty infiltration of the bilateral gluteal/pelvic girdle musculature. CT/CT abdomen pelvis wo con IMPRESSION: 1. Urinary bladder decompressed by Virgen catheter. Punctate nonobstructive right renal calculi. No hydronephrosis. Normal caliber ureters without evidence of ureteral calculi. 2. Normal CT appearance of the gallbladder. No intrahepatic or extra hepatic biliary ductal dilation. 3. Diverticulosis. 4. Mild retained rectal stool burden. 5. Heavy aortoiliac atherosclerotic disease. 6. Hepatic steatosis. 7. Coronary vascular disease. 8. Bibasilar groundglass opacities which may be secondary to inflammatory or infectious etiology. Superimposed bibasilar subsegmental atelectasis and bibasilar parenchymal scarring.
[2020-11-27 03:31] VITALS: BP 122/68; PULSE 103; RESP 18; TEMP 37.6; O2SAT 95
[2020-11-27 07:45] LABS: Glucose, Whole Blood 320 mg/dL (60-115)
[2020-11-27 07:47] VITALS: BP 158/74; PULSE 103; RESP 20; TEMP 36.2; O2SAT 94
[2020-11-27] MEDS: Insulin Lispro 100 UNIT/ML 3 ML VIAL SUBCUT ×4 (08:24→23:28)
[2020-11-27] MEDS: Heparin Sodium,Porcine 5,000 UNIT/ML VIAL 5000 UNIT SUBCUT ×2 (08:24→23:27)
[2020-11-27] MEDS: cefTRIAXone sodium 1 GM in 0.9 % Sodium Chloride 50 ML IV (08:25)
--- NOTE | 2020-11-27 09:41 | P.CDIC_ITS ---
CDI Concurrent Query Service Date: 11/27/20 Documentation Clarification: Please clarify if you are treating a proba ble/suspected/likely or confirmed: LANIE on Chronic kidney disease stage 1-5 or other Please specify if known Provider Response: Other (acute kidney injury) Other Diagnosis: Acute kidney injury PLEASE DO NOT DELETE/MODIFY EXISTING CONTENT Additional information is needed in order to code to the highest accuracy and appropriate Severity of Illness (SOI). Please clarify the information noted below in your progress notes and discharge summary. Risk Factors/Clinical Indicators/Treatments PMH CKD Decreased PO, lethargic, LANIE likely from dehydration. Cr./BUN 33/1.82 Monitor kidney function IV fluids Avoid nephrotoxic CDS: Claudia Chi CCS, CDIS Contact Number: [phone] Please Review the information above and exercise your independent professional judgment in responding to the query. If you concur, pleas document in the PROGRESS NOTES and DISCHARGE SUMMARY. If you do not agree with the query, please document in the query above. THIS QUERY IS PART OF THE PERMANENT MEDICAL RECORD
[2020-11-27 10:05] LABS: Basophils Percent Auto 0.2 % (0-2); Eosinophils Absolute Auto 0.1 X10*3/uL (0.0-0.4); Eosinophils Percent Auto 2.2 % (0-4); Hematocrit 37.9 % (37-47); Hemoglobin 11.3 g/dl (12.0-16.0); Imm Gran Abs Auto 0.07 X10*3/uL (0.00-0.03); Imm Gran Pct Auto 1.2 % (0.0-0.4); Lymphocytes Absolute Auto 1.5 X10*3/uL (1.2-4.9); Lymphocytes Percent Auto 24.7 % (20-40); MANUAL DIFF FLAG SCAN; Mean Corpuscular HGB Conc 29.8 g/dl (31.0-35.0); Mean Corpuscular Hemoglobin 30.5 pg (27.0-33.0); Mean Corpuscular Volume 102.2 fL (80-98); Mean Platelet Volume 9.5 fL (9.4-12.3); Monocytes Absolute Auto 0.2 X10*3/uL (0.1-1.2); Monocytes Percent Auto 3.6 % (2-11); Neutrophils Percent Auto 68.1 % (45-73); Platelet Count 246 X10*3/uL (160-400); Red Blood Count 3.71 X10*6/uL (4.20-5.50); SCAN SMEAR FLAG 1; White Blood Count 5.9 X10*3/uL (4.8-10.8)
[2020-11-27 10:32] LABS: SLIDE REVIEW VERIFIED
[2020-11-27 11:02] LABS: Anion Gap 14 (12-20); Blood Urea Nitrogen 29 mg/dL (9-16); Calcium 8.2 mg/dL (8.4-10.2); Carbon Dioxide 21 mmol/L (22-29); Chloride 122 mmol/L (96-108); Creatinine Clr Calc Pharmacy 37.9; Estimated Glomerular Filt Rate 34; Glucose Random 359 mg/dL (60-115); Potassium 4.9 mmol/l (3.3-5.1); Sodium 152 mmol/L (135-145)
[2020-11-27 11:17] LABS: Glucose, Whole Blood 274 mg/dL (60-115)
[2020-11-27 11:28] VITALS: BP 152/80; PULSE 92; RESP 18; TEMP 36.4; O2SAT 92
[2020-11-27] MEDS: Dextrose 5 % and 0.45 % NaCl 1,000 ML 80 ML IVCONT (12:22)
--- NOTE | 2020-11-27 13:02 | MHC.CM.PN ---
Patient is on IV Ceftriaxone for +UTI and IVF. Patient is COVID +. Discharge plan is to return to [facility] when medically stable. Patient will need S transport. CM will continue to follow for discharge needs.
--- NOTE | 2020-11-27 13:14 | MHC.CM.PN ---
Patient is on IV Ceftriaxone and IVF for +UTI, cultures pending. Patient discharge plan is to return to [facility] via BLS transport. CM will continue to follow patient for discharge needs.
[2020-11-27 16:00] VITALS: BP 126/94; PULSE 91; RESP 16; TEMP 38.2; O2SAT 93
--- NOTE | 2020-11-27 16:00 | HO.PM.IMPN ---
Subjective Subjective Date of Service: 11/27/20 Interval History: Patient seen and examined at bedside Patient continues to remain encephalopathy Review of Systems Unable to do review of system due to lethargic Physical Exam Vital Signs: Vital Signs: Last Vital Signs Temp 97.5 F 11/27/20 11:28 Pulse 92 11/27/20 11:28 Resp 18 11/27/20 11:28 BP 152/80 H 11/27/20 11:28 Pulse Ox 92 11/27/20 11:28 Body Mass Index 31.8 Const: General: lethargic Orientation/consciousness: lethargic HENMT: Head: Yes normal to inspection Ears: hearing grossly normal bilaterally General nose exam: Normal external nose present Face and sinus: Yes normal facial exam Eyes: General: appearance normal, both eyes and all related structures Pupils: Equal, round and reactive pupils present EOM: EOMs intact bilaterally Neck: Neck: Yes normal visual inspection Resp: Other: Coarse lung sounds throughout Effort & Inspection: normal respiratory effort Auscultation: diminished lung sounds (Bibasilar) Cardio: Rate: regular rate Heart sounds: S1 normal heart sound present and S2 normal heart sound present GI: Inspection: Yes normal to inspection Palpation (GI): Soft to palpation, nontender, no guarding and not rigid Skin: Rashes: no rashes Wounds: no wounds Neuro: Other: Does not follow commands. Aphasic (baseline). Right-sided deficits from prior CVA Cranial nerves: Yes Equal, round and reactive pupils present Extrem: General: Yes normal to inspection Objective Data Current Medications Generic Name Dose Route Start Last Admin Trade Name Freq PRN Reason Stop Dose Admin Acetaminophen 650 mg 11/25/20 20:27 Acetaminophen 325 Mg Tablet PO Q6H PRN Pain, Mild (Pain Scale 1-3) Acetaminophen 650 mg 11/25/20 20:27 Acetaminophen 325 Mg Tablet PO Q4H PRN Pain Aspirin 81 mg 11/25/20 21:00 11/27/20 08:34 Aspirin 81 Mg Tab.Chew PO Not Given BID TIM Atorvastatin Calcium 40 mg 11/25/20 21:00 11/26/20 22:44 Atorvastatin Calcium 40 Mg Tablet PO Not Given BEDTIME TIM Calcium Carbonate 750 mg 11/25/20 20:46 Calcium Carbonate 750 Mg Tab.Chew PO DAILY PRN Acid Reflux Carbamazepine 300 mg 11/25/20 21:00 11/27/20 08:34 Carbamazepine 100 Mg Tab.Chew PO Not Given BID [facility] Docusate Sodium 100 mg 11/25/20 21:00 11/27/20 08:34 Docusate Sodium 100 Mg Capsule PO Not Given BID [facility] Haloperidol 15 mg 11/25/20 21:00 11/26/20 22:44 Haloperidol 5 Mg Tablet PO Not Given BEDTIME [facility] Heparin Sodium (Porcine) 5,000 unit 11/25/20 21:00 11/27/20 08:24 Heparin Sodium,Porcine 5,000 Unit/Ml Vial SUBCUT 5,000 unit Q12H [facility] Administration Ceftriaxone Sodium 1 gm/ 50 mls @ 100 mls/hr 11/26/20 09:00 11/27/20 09:59 Sodium Chloride IV Infused Q24H [facility] Infusion Dextrose/Sodium Chloride 1,000 mls @ 100 mls/hr 11/26/20 14:30 11/27/20 12:22 D51/2ns IVCONT 80 mls/hr .Q10H [facility] Administration Insulin Glargine 22 unit 11/25/20 21:00 11/26/20 22:45 Insulin Glargine,Hum.Rec.Anlog 100 Unit/Ml 10 Ml Vial SUBCUT Not Given BEDTIME [facility] Insulin Human Lispro 0 unit 11/25/20 21:00 11/27/20 12:21 Insulin Lispro 100 Unit/Ml 3 Ml Vial SUBCUT 6 unit QIDACHS [facility] Administration Protocol Lactulose 200 gm 11/27/20 16:00 Lactulose 160 Gm/240 Ml Solution IA 11/30/20 08:01 Q8H [facility] [place] Carbonate 150 mg 11/25/20 21:00 11/27/20 08:34 [place] Carbonate 300 Mg Tablet PO Not Given BID [facility] Metoprolol Tartrate 12.5 mg 11/25/20 21:00 11/27/20 08:35 Metoprolol Tartrate 25 Mg Tablet PO Not Given BID [facility] Protocol Ondansetron HCl 4 mg 11/25/20 20:27 Ondansetron Hcl 4 Mg/2 Ml Vial IVPUSH Q8H PRN Nausea and Vomiting Pharmacy Consult 1 each 11/25/20 13:42 Consult Rx Perform Med Rec MISCELLANE ONCE PRN Consult order Senna 17 mg 11/25/20 21:00 11/26/20 22:47 Sennosides 8.6 Mg Tablet PO Not Given BEDTIME [facility] Sodium Chloride 3 ml 11/26/20 00:00 11/27/20 08:25 0.9 % Sodium Chloride Flush 3 Ml Syringe IVFLUSH Not Given QSHIFT [facility] Labs CBC & Chem 7: 11/27/20 09:47 11/27/20 09:47 Microbiology Microbiology Results: Microbiology 11/25/20 00:00 Urine Virgen Port Urine Culture - Final Escherichia coli 11/25/20 15:09 Blood - Venous Blood Culture - Preliminary No growth after 24 hours. 11/25/20 15:09 Blood - Venous Blood Culture - Preliminary No growth after 24 hours. Assessment and Plan (1) Acute UTI: Status: Acute Assessment and Plan: 70 year old women admitted with multiple issues including Sepsis secondary to UTI. Sepsis secondary to UTI Continue IV antibiotic Urine culture growing E coli Blood culture preliminary negative Supportive manage LANIE. Likely from dehydration. Continue IV fluids. Monitor kidney function Avoid nephrotoxic Toxic metabolic encephalopathy Still lethargic opens eyes to stimuli Not following commands Treat underlying condition Monitor mental status closely CT head shows old stroke ABG shows no pCO2 retention Ammonia level was elevated Will start lactulose, monitor ammonia level Hyperkalemia resolved Monitor electrolytes Hypernatremia. Sodium trending up Will increase D5 half NS Nephrology consult Monitor sodium Avoid over-correction COVID 19. Diagnosed previously. No hypoxia noted. Hold odd on antibiotics and steroids for now. Continue supportive manage Diabetes. Continue Sliding scale, ADA diet CVA. Aphasic, left sided paraplegia. Chronic. Continue aspirin and statin HLD. statin DVT prophylaxis with Heparin
[2020-11-27 16:52] LABS: Alanine Aminotransferase 24 U/L (0-31); Albumin Level 3.1 g/dL (3.5-5.0); Alkaline Phosphatase 90 U/L (39-117); Aspartate Amino Transferase 22 U/L (5-31); Bilirubin Direct < 0.2 mg/dL (0.0-0.5); Bilirubin Total < 0.2 mg/dL (0.0-1.0); Total Protein 6.3 g/dL (6.5-8.0)
--- NOTE | 2020-11-27 17:40 | CONS_ITS ---
DATE OF SERVICE: 11/27/2020 REASON FOR CONSULTATION: I was called to see this patient to assist in the management of acute kidney injury and hypernatremia. HISTORY OF PRESENT ILLNESS: To summarize, Sanjuana is a 70-year-old woman with a history of mild chronic kidney disease against the backdrop of diabetes mellitus, hypertension, and coronary artery disease. She has been on lithium for a long time. She has a history of acute kidney injury in the past and I have seen her back in 2009. Currently, she has been admitted because of lethargy and she was found to have hypernatremia along with acute kidney injury. She was diagnosed with COVID back in early November. Since admission, her oral intake has been poor. She has had increased lethargy and hence this consultation. PAST MEDICAL HISTORY: Ongoing medical problems include stage 3 chronic kidney disease, history of chronic lithium usage, coronary artery disease, COPD, CVA, diabetes mellitus complicated by diabetic neuropathy, history of hyperlipidemia, and non-ST elevation PR. ALLERGIES: SHE HAS NO KNOWN DRUG ALLERGIES DOCUMENTED. MEDICATIONS: At the time of admission included aspirin, atorvastatin, calcium carbonate, carbamazepine, Colace, haloperidol, insulin, lithium 150 mg b.i.d., metoprolol, senna. REVIEW OF SYSTEMS: Not obtainable from the patient due to her mentation. SOCIAL HISTORY: Not available. All the information obtained from the chart. PHYSICAL EXAMINATION: GENERAL: Sanjuana is an elderly woman. She is arousable, not verbalizing. She appears ill. NECK: Supple. No JVD. LUNGS: Air entry equal with few scattered rhonchi. HEART: S1 and S2 heard. No gallop. ABDOMEN: Obese, soft, nontender. EXTREMITIES: No clubbing. No involuntary movements. LABORATORY DATA: On admission, sodium 148, potassium , CO2 of 17, BUN 33, creatinine 1.8, blood sugar 300. Today, sodium 152, potassium 4.9, CO2 of 21, BUN 29, creatinine 1.5, blood sugar 359. [place] level is not available. Calcium 8.2. Ammonia 60. Hemoglobin was 11.3, platelet count 246. Urinalysis on admission showed specific gravity more than 1.030, 2+ protein, 3+ blood by dipstick. CT head on admission showed large left MCA territory infarct with encephalomalacia. No hydrocephalus. Chest x-ray showed question of mild interstitial pneumonitis. IMPRESSION: A 70-year-old woman with a history of chronic kidney disease in the setting of hypertension, diabetes mellitus, and chronic lithium usage, who had COVID-19 infection recently, currently has hypernatremia with acute kidney injury, most likely due to volume depletion. 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 I suspect she has decreased free water intake leading to hypernatremia. Nevertheless, we will proceed with a workup. RECOMMENDATIONS: My recommendation would be to obtain a spot urine for sodium, creatinine, and osmolality. Check serum osmolality. Hydrate with hypotonic fluids. We would start using half-normal saline, keep intake more than the output, and watch the urine output, and watch for polyuria. Check lithium levels. Goal is to cut the serum sodium at a rate of 0.5 millimole per liter per hour and not exceed more than 10 millimoles in a 24 hour period. The renal function should improve with hydration and further workup will be based on the outcome of the baseline investigations. We will follow her along with the team. Pete David MD BPA/MODL / [id number]
[2020-11-27 19:00] LABS: Glucose, Whole Blood 210 mg/dL (60-115)
[2020-11-27 20:00] VITALS: BP 101/66; PULSE 92; RESP 20; TEMP 36.6; O2SAT 94
[2020-11-27 20:46] LABS: Glucose, Whole Blood 224 mg/dL (60-115)
[2020-11-27 23:42] VITALS: BP 116/79; PULSE 100; RESP 18; TEMP 37.6; O2SAT 96
[2020-11-28] MEDS: 0.9 % Sodium Chloride Flush 3 ML SYRINGE IVFLUSH ×3 (03:16→16:33)
[2020-11-28] MEDS: Dextrose 5 % and 0.45 % NaCl 1,000 ML 100 ML IVCONT (03:19)
[2020-11-28 04:00] VITALS: BP 107/63; PULSE 93; RESP 18; TEMP 36.8; O2SAT 94
[2020-11-28 06:28] LABS: Basophils Percent Auto 0.2 % (0-2); Eosinophils Absolute Auto 0.2 X10*3/uL (0.0-0.4); Hemoglobin 10.8 g/dl (12.0-16.0); Imm Gran Abs Auto 0.09 X10*3/uL (0.00-0.03); Imm Gran Pct Auto 1.4 % (0.0-0.4); Lymphocytes Absolute Auto 1.8 X10*3/uL (1.2-4.9); Lymphocytes Percent Auto 28.2 % (20-40); MANUAL DIFF FLAG SCAN; Mean Corpuscular HGB Conc 29.2 g/dl (31.0-35.0); Mean Corpuscular Hemoglobin 30.1 pg (27.0-33.0); Mean Corpuscular Volume 103.1 fL (80-98); Mean Platelet Volume 9.6 fL (9.4-12.3); Monocytes Absolute Auto 0.3 X10*3/uL (0.1-1.2); Monocytes Percent Auto 4.9 % (2-11); Neutrophils Percent Auto 62.3 % (45-73); Platelet Count 258 X10*3/uL (160-400); Red Blood Count 3.59 X10*6/uL (4.20-5.50); Red Cell Distribution Width 14.1 % (11.0-16.0); SCAN SMEAR FLAG 1; White Blood Count 6.4 X10*3/uL (4.8-10.8)
[2020-11-28 06:59] LABS: SLIDE REVIEW VERIFIED
[2020-11-28 07:14] LABS: Anion Gap 16 (12-20); Blood Urea Nitrogen 22 mg/dL (9-16); Calcium 8.3 mg/dL (8.4-10.2); Carbon Dioxide 19 mmol/L (22-29); Chloride 125 mmol/L (96-108); Creatinine Clr Calc Pharmacy 41.8; Estimated Glomerular Filt Rate 38; Glucose Random 361 mg/dL (60-115); Potassium 4.6 mmol/l (3.3-5.1); Sodium 155 mmol/L (135-145)
[2020-11-28] MEDS: cefTRIAXone sodium 1 GM in 0.9 % Sodium Chloride 50 ML IV (07:40)
[2020-11-28] MEDS: Insulin Lispro 100 UNIT/ML 3 ML VIAL SUBCUT ×4 (07:40→20:25)
[2020-11-28] MEDS: Heparin Sodium,Porcine 5,000 UNIT/ML VIAL 5000 UNIT SUBCUT ×2 (07:44→20:28)
[2020-11-28 08:00] VITALS: BP 130/60; PULSE 88; RESP 22; TEMP 37.7; O2SAT 92
[2020-11-28 09:41] LABS: Osmolality, Serum 343 mosm/kg (281-305)
--- NOTE | 2020-11-28 11:29 | P.PNNP_ITS ---
Subjective Subjective Date of Service: 11/28/20 Interval history: Events noted no change in mentation Physical Exam Vital Signs: Vital Signs: Last Vital Signs Temp 99.8 F 11/28/20 08:00 Pulse 88 11/28/20 08:00 Resp 22 H 11/28/20 08:00 BP 130/60 11/28/20 08:00 Pulse Ox 92 11/28/20 08:00 Body Mass Index 31.8 Const: General: ill appearing Cardio: Heart sounds: no murmurs and no rubs GI: Auscultation: normal bowel sounds Objective Data Labs CBC & Chem 7: 11/28/20 05:17 11/28/20 05:17 Labs: Laboratory Results - last 24 hr 11/27/20 11/27/20 11/27/20 09:47 18:41 20:18 WBC RBC Hgb Hct MCV MCH MCHC RDW Plt Count MPV Immature Gran % (Auto) Neut % (Auto) Lymph % (Auto) [place] % (Auto) Eos % (Auto) Baso % (Auto) Lymph # (Auto) [place] # (Auto) Eos # (Auto) Baso # (Auto) Abs Immat Gran (auto) Absolute Neuts (auto) Absolute Nucleated RBC Nucleated RBC % (auto) Smear Tech's Comments Sodium Potassium Chloride Carbon Dioxide Anion Gap BUN Creatinine Estim Creat Clear Calc Estimated GFR POC Glucose 210 H 224 H Random Glucose Osmolality Calcium Total Bilirubin < 0.2 Direct Bilirubin < 0.2 AST 22 D ALT 24 Alkaline Phosphatase 90 Total Protein 6.3 L Albumin 3.1 L 11/28/20 11/28/20 11/28/20 05:17 05:17 08:55 WBC 6.4 RBC 3.59 L Hgb 10.8 L Hct 37.0 MCV 103.1 H MCH 30.1 MCHC 29.2 L RDW 14.1 Plt Count 258 MPV 9.6 Immature Gran % (Auto) 1.4 H Neut % (Auto) 62.3 Lymph % (Auto) 28.2 [place] % (Auto) 4.9 Eos % (Auto) 3.0 Baso % (Auto) 0.2 Lymph # (Auto) 1.8 [place] # (Auto) 0.3 Eos # (Auto) 0.2 Baso # (Auto) 0.0 Abs Immat Gran (auto) 0.09 H Absolute Neuts (auto) 4.0 Absolute Nucleated RBC 0.000 Nucleated RBC % (auto) 0.0 Smear Tech's Comments VERIFIED Sodium 155 H Potassium 4.6 Chloride 125 H Carbon Dioxide 19 L Anion Gap 16 BUN 22 H Creatinine 1.36 Estim Creat Clear Calc 41.8 Estimated GFR 38 POC Glucose Random Glucose 361 H* Osmolality 343 H Calcium 8.3 L Total Bilirubin Direct Bilirubin AST ALT Alkaline Phosphatase Total Protein Albumin Microbiology Microbiology Results: Microbiology 11/25/20 15:09 Blood - Venous Blood Culture - Preliminary No growth after 48 hours. 11/25/20 15:09 Blood - Venous Blood Culture - Preliminary No growth after 48 hours. 11/25/20 00:00 Urine Virgen Port Urine Culture - Final Escherichia coli Assessment & Plan Assessment and plan (1) LANIE (acute kidney injury): Status: Acute Assessment and Plan: Due to hypoperfusion KeepI > O Renal fx should improve Hypernatremia Due to free water deficit Goal pNa< 145 Keep I > O with hypotonic fludis Urine studies pending Time Spent With Patient Time: Total time spent is greater than 50% in coordination of care (as documented) at patient's floor/unit and/or counseling patient:
[2020-11-28 12:00] VITALS: BP 146/76; PULSE 77; RESP 22; TEMP 37.1; O2SAT 93
[2020-11-28 12:00] LABS: Glucose, Whole Blood 318 mg/dL (60-115)
--- NOTE | 2020-11-28 14:40 | P.PNIM_ITS ---
Subjective Subjective Date of Service: 11/29/20 Interval History: Patient seen and examined at bedside Patient continues to remain encephalopathy Opening eyes to painful stimuli Review of Systems Unable to do review of system due to lethargic Physical Exam Vital Signs: Vital Signs: Last Vital Signs Temp 98.8 F 11/28/20 12:00 Pulse 77 11/28/20 12:00 Resp 22 H 11/28/20 12:00 BP 146/76 H 11/28/20 12:00 Pulse Ox 93 11/28/20 12:00 Body Mass Index 31.8 Const: General: lethargic Orientation/consciousness: lethargic HENMT: Head: Yes normal to inspection Neck: Neck: Yes normal visual inspection Resp: Other: Coarse lung sounds throughout Auscultation: diminished lung sounds (Bibasilar) Cardio: Rate: regular rate Heart sounds: S1 normal heart sound present and S2 normal heart sound present GI: Inspection: Yes normal to inspection Palpation (GI): Soft to palpation, nontender, no guarding and not rigid Skin: Rashes: no rashes Wounds: no wounds Neuro: Other: Does not follow commands. Aphasic (baseline). Right-sided deficits from prior CVA Extrem: General: Yes normal to inspection Objective Data Current Medications Generic Name Dose Route Start Last Admin Trade Name Freq PRN Reason Stop Dose Admin Acetaminophen 650 mg 11/25/20 20:27 Acetaminophen 325 Mg Tablet PO Q6H PRN Pain, Mild (Pain Scale 1-3) Acetaminophen 650 mg 11/25/20 20:27 Acetaminophen 325 Mg Tablet PO Q4H PRN Pain Aspirin 81 mg 11/25/20 21:00 11/28/20 07:40 Aspirin 81 Mg Tab.Chew PO Not Given BID TIM Atorvastatin Calcium 40 mg 11/25/20 21:00 11/27/20 23:26 Atorvastatin Calcium 40 Mg Tablet PO Not Given BEDTIME TIM Calcium Carbonate 750 mg 11/25/20 20:46 Calcium Carbonate 750 Mg Tab.Chew PO DAILY PRN Acid Reflux Carbamazepine 300 mg 11/25/20 21:00 11/28/20 07:40 Carbamazepine 100 Mg Tab.Chew PO Not Given BID TIM Docusate Sodium 100 mg 11/25/20 21:00 11/28/20 07:41 Docusate Sodium 100 Mg Capsule PO Not Given BID TIM Haloperidol 15 mg 11/25/20 21:00 11/27/20 23:26 Haloperidol 5 Mg Tablet PO Not Given BEDTIME [facility] Heparin Sodium (Porcine) 5,000 unit 11/25/20 21:00 11/28/20 07:44 Heparin Sodium,Porcine 5,000 Unit/Ml Vial SUBCUT 5,000 unit Q12H [facility] Administration Ceftriaxone Sodium 1 gm/ 50 mls @ 100 mls/hr 11/26/20 09:00 11/28/20 08:14 Sodium Chloride IV Infused Q24H [facility] Infusion Dextrose/Sodium Chloride 1,000 mls @ 100 mls/hr 11/26/20 14:30 11/28/20 04:09 D51/2ns IVCONT Not Given .Q10H [facility] Insulin Glargine 22 unit 11/25/20 21:00 11/27/20 23:27 Insulin Glargine,Hum.Rec.Anlog 100 Unit/Ml 10 Ml Vial SUBCUT Not Given BEDTIME [facility] Insulin Human Lispro 0 unit 11/25/20 21:00 11/28/20 12:01 Insulin Lispro 100 Unit/Ml 3 Ml Vial SUBCUT 8 unit QIDACHS [facility] Administration Protocol Lactulose 200 gm 11/27/20 16:00 11/28/20 07:40 Lactulose 160 Gm/240 Ml Solution [place] 11/30/20 08:01 200 gm Q8H [facility] Administration [place] Carbonate 150 mg 11/25/20 21:00 11/28/20 07:42 [place] Carbonate 300 Mg Tablet PO Not Given BID [facility] Metoprolol Tartrate 12.5 mg 11/25/20 21:00 11/28/20 07:42 Metoprolol Tartrate 25 Mg Tablet PO Not Given BID [facility] Protocol Ondansetron HCl 4 mg 11/25/20 20:27 Ondansetron Hcl 4 Mg/2 Ml Vial IVPUSH Q8H PRN Nausea and Vomiting Pharmacy Consult 1 each 11/25/20 13:42 Consult Rx Perform Med Rec MISCELLANE ONCE PRN Consult order Senna 17 mg 11/25/20 21:00 11/27/20 23:28 Sennosides 8.6 Mg Tablet PO Not Given BEDTIME [facility] Sodium Chloride 3 ml 11/26/20 00:00 11/28/20 07:40 0.9 % Sodium Chloride Flush 3 Ml Syringe IVFLUSH 3 ml QSHIFT [facility] Administration Labs CBC & Chem 7: 11/29/20 08:57 11/29/20 05:39 Microbiology Microbiology Results: Microbiology 11/25/20 15:09 Blood - Venous Blood Culture - Preliminary No growth after 48 hours. 11/25/20 15:09 Blood - Venous Blood Culture - Preliminary No growth after 48 hours. 11/25/20 00:00 Urine [place] Urine Culture - Final Escherichia coli Assessment and Plan (1) Acute UTI: Status: Acute Assessment and Plan: 70 year old women admitted with multiple issues including Sepsis secondary to UTI. Sepsis secondary to UTI Continue IV antibiotic Urine culture growing E coli Blood culture preliminary negative Supportive manage Hypernatremia worsening Sodium trending up 155 today Switched to D5 Nephrology consult Monitor sodium LANIE. Likely from dehydration. improving Continue IV fluids. Monitor kidney function Avoid nephrotoxic Toxic metabolic encephalopathy Still lethargic opens eyes to stimuli Not following commands Treat underlying condition Monitor mental status closely CT head shows old stroke ABG shows no pCO2 retention Ammonia level was elevated Will start lactulose, monitor ammonia level Hyperkalemia resolved Monitor electrolytes Avoid over-correction COVID 19. Diagnosed previously. No hypoxia noted. Hold odd on antibiotics and steroids for now. Continue supportive manage Diabetes. Continue Sliding scale, ADA diet CVA. Aphasic, left sided paraplegia. Chronic. Continue aspirin and statin HLD. statin DVT prophylaxis with Heparin
[2020-11-28 15:45] VITALS: BP 141/60; PULSE 77; RESP 20; TEMP 36.4; O2SAT 91
[2020-11-28] MEDS: Dextrose 5 % 1,000 ML 125 ML IVCONT (16:33)
[2020-11-28 17:11] LABS: Glucose, Whole Blood 177 mg/dL (60-115)
--- NOTE | 2020-11-28 17:44 | PC.NURSE ---
P-patient uncooperative with care screaming and becoming agitated when nurse attempted to explain NG tube placement ,will not let nurse to even wipe her mouth I-dr. Isbell made aware E-will monitor
[2020-11-28 19:26] VITALS: BP 130/62; PULSE 78; RESP 19; TEMP 36.9; O2SAT 92
[2020-11-28 20:18] LABS: Glucose, Whole Blood 261 mg/dL (60-115)
[2020-11-28] MEDS: Insulin Glargine,Hum.rec.anlog 100 UNIT/ML 10 ML VIAL 30 UNIT SUBCUT (20:25)
[2020-11-28] MEDS: Atorvastatin Calcium 40 MG TABLET PO (20:26)
[2020-11-29] VITALS: BP 103/58; PULSE 82; RESP 20; TEMP 36.6; O2SAT 91
[2020-11-29] MEDS: Dextrose 5 % 1,000 ML 125 ML IVCONT ×3 (00:40→22:30)
[2020-11-29] MEDS: 0.9 % Sodium Chloride Flush 3 ML SYRINGE IVFLUSH ×2 (00:40→23:57)
[2020-11-29 03:31] VITALS: BP 103/60; PULSE 77; RESP 20; TEMP 36.8; O2SAT 92
--- NOTE | 2020-11-29 04:03 | PC.NURSE ---
placed two small Allevyn Life dressings to small open areas one on each buttocks. Very small amount of bloody drainage on bed pad, bed pad changed, patient turned and repositioned.
[2020-11-29 07:13] LABS: Anion Gap 16 (12-20); Blood Urea Nitrogen 16 mg/dL (9-16); Calcium 8.1 mg/dL (8.4-10.2); Carbon Dioxide 20 mmol/L (22-29); Chloride 125 mmol/L (96-108); Creatinine Clr Calc Pharmacy 45.6; Estimated Glomerular Filt Rate 42; Glucose Random 267 mg/dL (60-115); Potassium 4.8 mmol/l (3.3-5.1); Sodium 156 mmol/L (135-145)
[2020-11-29 07:40] VITALS: BP 141/62; PULSE 77; RESP 18; TEMP 36.6; O2SAT 91
[2020-11-29 07:59] LABS: Glucose, Whole Blood 244 mg/dL (60-115)
[2020-11-29] MEDS: Insulin Lispro 100 UNIT/ML 3 ML VIAL SUBCUT ×4 (08:39→22:13)
[2020-11-29] MEDS: cefTRIAXone sodium 1 GM in 0.9 % Sodium Chloride 50 ML IV (08:40)
[2020-11-29] MEDS: Heparin Sodium,Porcine 5,000 UNIT/ML VIAL 5000 UNIT SUBCUT ×2 (08:41→22:09)
[2020-11-29 09:27] LABS: Basophils Percent Auto 0.3 % (0-2); Eosinophils Absolute Auto 0.2 X10*3/uL (0.0-0.4); Eosinophils Percent Auto 2.7 % (0-4); Hematocrit 40.8 % (37-47); Imm Gran Pct Auto 4.1 % (0.0-0.4); Lymphocytes Absolute Auto 2.6 X10*3/uL (1.2-4.9); Lymphocytes Percent Auto 35.2 % (20-40); MANUAL DIFF FLAG SCAN; Mean Corpuscular HGB Conc 29.4 g/dl (31.0-35.0); Mean Corpuscular Hemoglobin 30.3 pg (27.0-33.0); Monocytes Absolute Auto 0.5 X10*3/uL (0.1-1.2); Monocytes Percent Auto 6.4 % (2-11); Neutrophils Absolute Auto 3.8 X10*3/uL (2.0-8.3); Neutrophils Percent Auto 51.3 % (45-73); PLT CLUMP 1; Red Blood Count 3.96 X10*6/uL (4.20-5.50); SCAN SMEAR FLAG 1
[2020-11-29 09:32] LABS: NRBC Pct Auto 1.2 /100WBC (0.0-0.2)
--- NOTE | 2020-11-29 10:11 | PC.NURSE ---
DR POZO AWARE OF PT REFUSAL OF PO MEDICATIONS. PT ALERT, YELLS OUT AT TIMES. REPOSITIONED
[2020-11-29 11:52] LABS: Glucose, Whole Blood 242 mg/dL (60-115)
[2020-11-29 12:14] VITALS: BP 114/58; PULSE 79; RESP 18; TEMP 36.4; O2SAT 95
[2020-11-29 13:50] LABS: Platelet Count 223 X10*3/uL (160-400)
[2020-11-29 13:51] LABS: SLIDE REVIEW VERIFIED; White Blood Count 7.3 X10*3/uL (4.8-10.8)
--- NOTE | 2020-11-29 14:04 | MHC.CM.PN ---
Patient is on IV Ceftriaxone and IVF for +UTI. Na is also high at 156. Discharge plan is to return to [facility] when medically stable.Patient will need S transport.
[2020-11-29 15:50] VITALS: BP 103/64; PULSE 74; RESP 22; TEMP 36.4; O2SAT 94
--- NOTE | 2020-11-29 15:50 | HO.PM.IMPN ---
Subjective Subjective Date of Service: 11/29/20 Interval History: Patient seen and examined at bedside Patient is more awake now Review of Systems Unable to do review of system due to lethargic Physical Exam Vital Signs: Vital Signs: Last Vital Signs Temp 97.6 F 11/29/20 12:14 Pulse 79 11/29/20 12:14 Resp 18 11/29/20 12:14 BP 114/58 L 11/29/20 12:14 Pulse Ox 95 11/29/20 12:14 Body Mass Index 31.8 Const: General: lethargic Orientation/consciousness: lethargic HENMT: Head: Yes normal to inspection Ears: hearing grossly normal bilaterally General nose exam: Normal external nose present Face and sinus: Yes normal facial exam Eyes: General: appearance normal, both eyes and all related structures Pupils: Equal, round and reactive pupils present EOM: EOMs intact bilaterally Neck: Neck: Yes normal visual inspection Resp: Other: Coarse lung sounds throughout Effort & Inspection: normal respiratory effort Auscultation: diminished lung sounds (Bibasilar) Cardio: Rate: regular rate Heart sounds: S1 normal heart sound present and S2 normal heart sound present GI: Inspection: Yes normal to inspection Palpation (GI): Soft to palpation, nontender, no guarding and not rigid Skin: Rashes: no rashes Wounds: no wounds Neuro: Other: Does not follow commands. Aphasic (baseline). Right-sided deficits from prior CVA Cranial nerves: Yes Equal, round and reactive pupils present Extrem: General: Yes normal to inspection Objective Data Current Medications Generic Name Dose Route Start Last Admin Trade Name Freq PRN Reason Stop Dose Admin Acetaminophen 650 mg 11/25/20 20:27 Acetaminophen 325 Mg Tablet PO Q6H PRN Pain, Mild (Pain Scale 1-3) Acetaminophen 650 mg 11/25/20 20:27 Acetaminophen 325 Mg Tablet PO Q4H PRN Pain Aspirin 81 mg 11/25/20 21:00 11/29/20 09:00 Aspirin 81 Mg Tab.Chew PO Not Given BID TIM Atorvastatin Calcium 40 mg 11/25/20 21:00 11/28/20 20:26 Atorvastatin Calcium 40 Mg Tablet PO 40 mg BEDTIME TIM Administration Calcium Carbonate 750 mg 11/25/20 20:46 Calcium Carbonate 750 Mg Tab.Chew PO DAILY PRN Acid Reflux Carbamazepine 300 mg 11/25/20 21:00 11/29/20 09:00 Carbamazepine 100 Mg Tab.Chew PO Not Given BID [facility] Docusate Sodium 100 mg 11/25/20 21:00 11/29/20 09:00 Docusate Sodium 100 Mg Capsule PO Not Given BID [facility] Haloperidol 15 mg 11/25/20 21:00 11/28/20 20:36 Haloperidol 5 Mg Tablet PO Not Given BEDTIME TIM Heparin Sodium (Porcine) 5,000 unit 11/25/20 21:00 11/29/20 08:41 Heparin Sodium,Porcine 5,000 Unit/Ml Vial SUBCUT 5,000 unit Q12H TIM Administration Ceftriaxone Sodium 1 gm/ 50 mls @ 100 mls/hr 11/26/20 09:00 11/29/20 09:10 Sodium Chloride IV Infused Q24H [facility] Infusion Dextrose 1,000 mls @ 150 mls/hr 11/28/20 16:15 11/29/20 15:03 D5w IVCONT 125 mls/hr .Q6H40M TIM Administration Insulin Glargine 30 unit 11/28/20 21:00 11/28/20 20:25 Insulin Glargine,Hum.Rec.Anlog 100 Unit/Ml 10 Ml Vial SUBCUT 30 unit BEDTIME [facility] Administration Insulin Human Lispro 0 unit 11/25/20 21:00 11/29/20 12:19 Insulin Lispro 100 Unit/Ml 3 Ml Vial SUBCUT 4 unit QIDACHS [facility] Administration Protocol Lactulose 200 gm 11/27/20 16:00 11/29/20 15:02 Lactulose 160 Gm/240 Ml Solution [place] 11/30/20 08:01 200 gm Q8H TIM Administration [place] Carbonate 150 mg 11/25/20 21:00 11/29/20 09:00 [place] Carbonate 300 Mg Tablet PO Not Given BID [facility] Metoprolol Tartrate 12.5 mg 11/25/20 21:00 11/29/20 09:01 Metoprolol Tartrate 25 Mg Tablet PO Not Given BID [facility] Protocol Ondansetron HCl 4 mg 11/25/20 20:27 Ondansetron Hcl 4 Mg/2 Ml Vial IVPUSH Q8H PRN Nausea and Vomiting Pharmacy Consult 1 each 11/25/20 13:42 Consult Rx Perform Med Rec MISCELLANE ONCE PRN Consult order Senna 17 mg 11/25/20 21:00 11/28/20 20:37 Sennosides 8.6 Mg Tablet PO Not Given BEDTIME TIM Sodium Chloride 3 ml 11/26/20 00:00 11/29/20 15:03 0.9 % Sodium Chloride Flush 3 Ml Syringe IVFLUSH Not Given QSHIFT [facility] Labs CBC & Chem 7: 11/29/20 08:57 11/29/20 05:39 Microbiology Microbiology Results: Microbiology 11/25/20 15:09 Blood - Venous Blood Culture - Preliminary No growth after 48 hours. 11/25/20 15:09 Blood - Venous Blood Culture - Preliminary No growth after 48 hours. 11/25/20 00:00 Urine [place] Urine Culture - Final Escherichia coli Assessment and Plan (1) Acute UTI: Status: Acute Assessment and Plan: 70 year old women admitted with multiple issues including Sepsis secondary to UTI. Sepsis secondary to UTI Continue IV antibiotic Urine culture growing E coli Blood culture preliminary negative Supportive manage Hypernatremia Sodium still around 156 Continue D5 Patient is more awake now , encourage oral hydration Nephrology consulted Monitor sodium LANIE. Likely from dehydration. improving Continue IV fluids. Monitor kidney function Avoid nephrotoxic Toxic metabolic encephalopathy More awake and alert now Monitor mental status CT head shows old stroke ABG shows no pCO2 retention Ammonia level was elevatedon admission LFTs were mildly elevated on admission trended down to normal CT abdomen shows hepatic steatosis Started on lactulose Will recheck ammonia tomorrow Hyperkalemia resolved Monitor electrolytes Avoid over-correction COVID 19. Diagnosed previously. No hypoxia noted. Hold odd on antibiotics and steroids for now. Continue supportive manage Diabetes. Continue Sliding scale, ADA diet CVA. Aphasic, left sided paraplegia. Chronic. Continue aspirin and statin HLD. statin DVT prophylaxis with Heparin
--- NOTE | 2020-11-29 15:58 | PM.PNNEP ---
Subjective Subjective Date of Service: 11/29/20 Interval history: Patient seen and examined at bedside Patient is more awake now Physical Exam Vital Signs: Vital Signs: Last Vital Signs Temp 97.6 F 11/29/20 15:50 Pulse 74 11/29/20 15:50 Resp 22 H 11/29/20 15:50 BP 103/64 11/29/20 15:50 Pulse Ox 94 11/29/20 15:50 Body Mass Index 31.8 Const: General: ill appearing Cardio: Heart sounds: no murmurs and no rubs GI: Auscultation: normal bowel sounds Objective Data Labs CBC & Chem 7: 11/29/20 08:57 11/29/20 05:39 Labs: Laboratory Results - last 24 hr 11/28/20 11/28/20 11/29/20 16:37 20:05 05:39 WBC Cancelled RBC Cancelled Hgb Cancelled Hct Cancelled MCV Cancelled MCH Cancelled MCHC Cancelled RDW Cancelled Plt Count Cancelled MPV Cancelled Immature Gran % (Auto) Cancelled Neut % (Auto) Cancelled Lymph % (Auto) Cancelled [place] % (Auto) Cancelled Eos % (Auto) Cancelled Baso % (Auto) Cancelled Lymph # (Auto) Cancelled [place] # (Auto) Cancelled Eos # (Auto) Cancelled Baso # (Auto) Cancelled Abs Immat Gran (auto) Cancelled Absolute Neuts (auto) Cancelled Absolute Nucleated RBC Cancelled Nucleated RBC % (auto) Cancelled Smear Tech's Comments Sodium Potassium Chloride Carbon Dioxide Anion Gap BUN Creatinine Estim Creat Clear Calc Estimated GFR POC Glucose 177 H 261 H Random Glucose Calcium 11/29/20 11/29/20 11/29/20 05:39 05:39 07:55 WBC RBC Hgb Hct MCV MCH MCHC RDW Plt Count MPV Immature Gran % (Auto) Neut % (Auto) Lymph % (Auto) [place] % (Auto) Eos % (Auto) Baso % (Auto) Lymph # (Auto) [place] # (Auto) Eos # (Auto) Baso # (Auto) Abs Immat Gran (auto) Absolute Neuts (auto) Absolute Nucleated RBC Nucleated RBC % (auto) Smear Tech's Comments Sodium 156 H Cancelled Potassium 4.8 Cancelled Chloride 125 H Cancelled Carbon Dioxide 20 L Cancelled Anion Gap 16 Cancelled BUN 16 Cancelled Creatinine 1.25 Cancelled Estim Creat Clear Calc 45.6 Cancelled Estimated GFR 42 Cancelled POC Glucose 244 H Random Glucose 267 H Cancelled Calcium 8.1 L Cancelled 11/29/20 11/29/20 08:57 11:49 WBC 7.3 RBC 3.96 L Hgb 12.0 Hct 40.8 MCV 103.0 H MCH 30.3 MCHC 29.4 L RDW 14.0 Plt Count 223 MPV Not Reportable Immature Gran % (Auto) 4.1 H Neut % (Auto) 51.3 Lymph % (Auto) 35.2 [place] % (Auto) 6.4 Eos % (Auto) 2.7 Baso % (Auto) 0.3 Lymph # (Auto) 2.6 [place] # (Auto) 0.5 Eos # (Auto) 0.2 Baso # (Auto) 0.0 Abs Immat Gran (auto) 0.30 H Absolute Neuts (auto) 3.8 Absolute Nucleated RBC 0.090 H Nucleated RBC % (auto) 1.2 H Smear Tech's Comments VERIFIED Sodium Potassium Chloride Carbon Dioxide Anion Gap BUN Creatinine Estim Creat Clear Calc Estimated GFR POC Glucose 242 H Random Glucose Calcium Microbiology Microbiology Results: Microbiology 11/25/20 15:09 Blood - Venous Blood Culture - Preliminary No growth after 48 hours. 11/25/20 15:09 Blood - Venous Blood Culture - Preliminary No growth after 48 hours. 11/25/20 00:00 Urine [place] Urine Culture - Final Escherichia coli Assessment & Plan Assessment and plan (1) LANIE (acute kidney injury): Status: Acute Assessment and Plan: Due to hypoperfusion Keep I > O Renal fx should improve Hypernatremia Due to free water deficit Goal pNa< 145 INcrease D5@ to 150 cc/hr Keep I > O with hypotonic fludis Urine studies pending Time Spent With Patient Time: Total time spent is greater than 50% in coordination of care (as documented) at patient's floor/unit and/or counseling patient:
[2020-11-29 16:23] LABS: Glucose, Whole Blood 274 mg/dL (60-115)
[2020-11-29 19:07] LABS: Ammonia 43 umol/L (13-55)
[2020-11-29 19:37] VITALS: BP 113/51; PULSE 71; RESP 20; TEMP 36.6; O2SAT 95
[2020-11-29 20:17] LABS: Glucose, Whole Blood 367 mg/dL (60-115)
[2020-11-29] MEDS: Insulin Glargine,Hum.rec.anlog 100 UNIT/ML 10 ML VIAL 30 UNIT SUBCUT (22:12)
[2020-11-30] VITALS (7 sets, daily range): BP systolic 90–117; BP diastolic 57–69; PULSE 58–74; RESP 16–20; TEMP 36–36.8; O2SAT 93–96
[2020-11-30] MEDS: Dextrose 5 % 1,000 ML 125 ML IVCONT (06:49)
[2020-11-30 08:27] LABS: Glucose, Whole Blood 339 mg/dL (60-115)
[2020-11-30] MEDS: Aspirin 81 MG TAB.CHEW PO ×2 (08:58→21:22)
[2020-11-30] MEDS: Metoprolol Tartrate 25 MG TABLET 12.5 MG PO ×2 (08:58→21:23)
[2020-11-30] MEDS: carBAMazepine 100 MG TAB.CHEW 300 MG PO ×2 (08:58→21:22)
[2020-11-30] MEDS: Lithium Carbonate 300 MG TABLET 150 MG PO ×2 (08:59→21:24)
[2020-11-30] MEDS: Heparin Sodium,Porcine 5,000 UNIT/ML VIAL 5000 UNIT SUBCUT ×2 (09:00→21:20)
[2020-11-30] MEDS: 0.9 % Sodium Chloride Flush 3 ML SYRINGE IVFLUSH ×2 (09:00→17:22)
[2020-11-30] MEDS: cefTRIAXone sodium 1 GM in 0.9 % Sodium Chloride 50 ML IV (09:00)
[2020-11-30] MEDS: Insulin Lispro 100 UNIT/ML 3 ML VIAL SUBCUT ×4 (09:02→21:21)
--- NOTE | 2020-11-30 11:21 | HO.PM.IMPN ---
Subjective Subjective Date of Service: 11/30/20 Interval History: Patient was seen and evaluated this morning Looks weak and tired Have difficulty speech is from aphasia No reported fever, chills overnight Asked to drink plenty of water Systematic review Difficult as a result of aphasia and difficulty speaking Physical Exam Vital Signs: Vital Signs: Last Vital Signs Temp 98.3 F 11/30/20 07:59 Pulse 70 11/30/20 07:59 Resp 17 11/30/20 07:59 BP 117/57 L 11/30/20 07:59 Pulse Ox 96 11/30/20 07:59 Body Mass Index 31.8 Const: Other: Constitutional : Alert, oriented, weak, not in distress Neck : Normal inspection, Supple Cardiovascular : RRR, S1 S2, no lower extremity edema Respiratory : Good bilateral air entry, no crackles, wheezes or rhonchi Gastrointestinal: soft, lax, Normal bowel sounds, Non tender Skin : Warm/Dry, No rash Neurological : Alert & oriented, No focal deficit Objective Data Current Medications Generic Name Dose Route Start Last Admin Trade Name Freq PRN Reason Stop Dose Admin Acetaminophen 650 mg 11/25/20 20:27 Acetaminophen 325 Mg Tablet PO Q6H PRN Pain, Mild (Pain Scale 1-3) Acetaminophen 650 mg 11/25/20 20:27 Acetaminophen 325 Mg Tablet PO Q4H PRN Pain Aspirin 81 mg 11/25/20 21:00 11/30/20 08:58 Aspirin 81 Mg Tab.Chew PO 81 mg BID TIM Administration Atorvastatin Calcium 40 mg 11/25/20 21:00 11/29/20 22:30 Atorvastatin Calcium 40 Mg Tablet PO Not Given BEDTIME TIM Cal[place] Carbonate 750 mg 11/25/20 20:46 Calcium Carbonate 750 Mg Tab.Chew PO DAILY PRN Acid Reflux Carbamazepine 300 mg 11/25/20 21:00 11/30/20 08:58 Carbamazepine 100 Mg Tab.Chew PO 300 mg BID TIM Administration Docusate Sodium 100 mg 11/25/20 21:00 11/30/20 09:00 Docusate Sodium 100 Mg Capsule PO Not Given BID TIM Haloperidol 15 mg 11/25/20 21:00 11/29/20 22:30 Haloperidol 5 Mg Tablet PO Not Given BEDTIME TIM Heparin Sodium (Porcine) 5,000 unit 11/25/20 21:00 11/30/20 09:00 Heparin Sodium,Porcine 5,000 Unit/Ml Vial SUBCUT 5,000 unit Q12H TIM Administration Ceftriaxone Sodium 1 gm/ 50 mls @ 100 mls/hr 11/26/20 09:00 11/30/20 09:41 Sodium Chloride IV Infused Q24H TIM Infusion Dextrose 1,000 mls @ 125 mls/hr 11/28/20 16:15 11/30/20 06:49 D5w IVCONT 125 mls/hr .Q8H TIM Administration Insulin Glargine 30 unit 11/28/20 21:00 11/29/20 22:12 Insulin Glargine,Hum.Rec.Anlog 100 Unit/Ml 10 Ml Vial SUBCUT 30 unit BEDTIME TIM Administration Insulin Human Lispro 0 unit 11/25/20 21:00 11/30/20 09:02 Insulin Lispro 100 Unit/Ml 3 Ml Vial SUBCUT 10 unit QIDACHS [facility] Administration Protocol [place] Carbonate 150 mg 11/25/20 21:00 11/30/20 08:59 [place] Carbonate 300 Mg Tablet PO 150 mg BID [facility] Administration Metoprolol Tartrate 12.5 mg 11/25/20 21:00 11/30/20 08:58 Metoprolol Tartrate 25 Mg Tablet PO 12.5 mg BID [facility] Administration Protocol Ondansetron HCl 4 mg 11/25/20 20:27 Ondansetron Hcl 4 Mg/2 Ml Vial IVPUSH Q8H PRN Nausea and Vomiting Pharmacy Consult 1 each 11/25/20 13:42 Consult Rx Perform Med Rec MISCELLANE ONCE PRN Consult order Senna 17 mg 11/25/20 21:00 11/29/20 22:02 Sennosides 8.6 Mg Tablet PO Not Given BEDTIME [facility] Sodium Chloride 3 ml 11/26/20 00:00 11/30/20 09:00 0.9 % Sodium Chloride Flush 3 Ml Syringe IVFLUSH 3 ml QSHIFT [facility] Administration Labs CBC & Chem 7: 11/29/20 08:57 11/29/20 05:39 Microbiology Microbiology Results: Microbiology 11/25/20 15:09 Blood - Venous Blood Culture - Preliminary No growth after 48 hours. 11/25/20 15:09 Blood - Venous Blood Culture - Preliminary No growth after 48 hours. 11/25/20 00:00 Urine [place] Urine Culture - Final Escherichia coli Assessment and Plan (1) Acute UTI: Status: Acute (2) Hypernatremia: Status: Acute (3) COVID-19 virus infection: Status: Acute (4) Metabolic encephalopathy: Status: Acute Assessment and Plan: 70 year old women admitted with multiple issues including Sepsis secondary to UTI. Sepsis secondary to UTI Continue IV antibiotic Urine culture growing E coli Blood culture negative Supportive manage Hypernatremia Sodium still around 156 In increase D5W to 150 encourage oral hydration Nephrology consulted Monitor sodium LANIE. from dehydration. improving Continue IV fluids. Monitor kidney function Avoid nephrotoxic metabolic encephalopathy Improving, UTI, secondary to electrolyte imbalance Ammonia level was elevatedon admission at 60 LFTs were mildly elevated on admission trended down to normal CT abdomen shows hepatic steatosis Started on lactulose Normal ammonia today Hyperkalemia resolved COVID 19. Diagnosed previously. No hypoxia noted. Hold odd on antibiotics and steroids for now. Continue supportive manage Diabetes. Continue Sliding scale, ADA diet CVA. Aphasic, left sided paraplegia. Chronic. Continue aspirin and statin HLD. statin DVT prophylaxis with Heparin
[2020-11-30 11:53] LABS: Glucose, Whole Blood 224 mg/dL (60-115)
--- NOTE | 2020-11-30 13:13 | PM.PNNEP ---
Subjective Subjective Date of Service: 11/30/20 Interval history: Seen and examiend. Events noted Physical Exam Vital Signs: Vital Signs: Last Vital Signs Temp 98.3 F 11/30/20 07:59 Pulse 70 11/30/20 07:59 Resp 17 11/30/20 07:59 BP 117/57 L 11/30/20 07:59 Pulse Ox 96 11/30/20 07:59 Body Mass Index 31.8 Const: General: ill appearing Cardio: Heart sounds: no murmurs and no rubs GI: Auscultation: normal bowel sounds Objective Data Labs CBC & Chem 7: 11/29/20 08:57 11/29/20 05:39 Labs: Laboratory Results - last 24 hr 11/29/20 11/29/20 11/29/20 08:57 15:56 18:33 WBC 7.3 Plt Count 223 MPV Not Reportable Immature Gran % (Auto) 4.1 H Neut % (Auto) 51.3 Lymph % (Auto) 35.2 [place] % (Auto) 6.4 Eos % (Auto) 2.7 Baso % (Auto) 0.3 Lymph # (Auto) 2.6 [place] # (Auto) 0.5 Eos # (Auto) 0.2 Baso # (Auto) 0.0 Abs Immat Gran (auto) 0.30 H Absolute Neuts (auto) 3.8 Absolute Nucleated RBC 0.090 H Nucleated RBC % (auto) 1.2 H Smear Tech's Comments VERIFIED POC Glucose 274 H Ammonia 43 11/29/20 11/30/20 11/30/20 19:42 08:00 11:45 WBC Plt Count MPV Immature Gran % (Auto) Neut % (Auto) Lymph % (Auto) [place] % (Auto) Eos % (Auto) Baso % (Auto) Lymph # (Auto) [place] # (Auto) Eos # (Auto) Baso # (Auto) Abs Immat Gran (auto) Absolute Neuts (auto) Absolute Nucleated RBC Nucleated RBC % (auto) Smear Tech's Comments POC Glucose 367 H* 339 H 224 H Ammonia Microbiology Microbiology Results: Microbiology 11/25/20 15:09 Blood - Venous Blood Culture - Preliminary No growth after 48 hours. 11/25/20 15:09 Blood - Venous Blood Culture - Preliminary No growth after 48 hours. 11/25/20 00:00 Urine [place] Urine Culture - Final Escherichia coli Assessment & Plan Assessment and plan (1) LANIE (acute kidney injury): Status: Acute Assessment and Plan: 1. HyperNa: signif FWD..suspect ongoing incr IWL and ques diarrhea; given urine sg 1.32 this goes agaisnt DI Sna this am pending REC: recheck SNa and cont replacing FWD with adjustment of IVF; check urine sudies Time Spent With Patient Time: Total time spent is greater than 50% in coordination of care (as documented) at patient's floor/unit and/or counseling patient:
[2020-11-30 16:26] LABS: Glucose, Whole Blood 235 mg/dL (60-115)
[2020-11-30] MEDS: Acetaminophen 325 MG TABLET 650 MG PO (17:32)
[2020-11-30 20:28] LABS: Glucose, Whole Blood 262 mg/dL (60-115)
[2020-11-30] MEDS: Insulin Glargine,Hum.rec.anlog 100 UNIT/ML 10 ML VIAL 30 UNIT SUBCUT (21:21)
[2020-11-30] MEDS: Sennosides 8.6 MG TABLET 17 MG PO (21:22)
[2020-11-30] MEDS: Docusate Sodium 100 MG CAPSULE PO (21:22)
[2020-11-30] MEDS: Atorvastatin Calcium 40 MG TABLET PO (21:22)
[2020-11-30] MEDS: HaloperidoL 5 MG TABLET 15 MG PO (21:22)
[2020-11-30] MEDS: Dextrose 5 % 1,000 ML 150 ML IVCONT (22:49)
[2020-12-01] VITALS (7 sets, daily range): BP systolic 101–132; BP diastolic 50–70; PULSE 65–80; RESP 17–20; TEMP 36.4–36.9; O2SAT 93–96
[2020-12-01] MEDS: Dextrose 5 % 1,000 ML 150 ML IVCONT (06:04)
[2020-12-01 07:48] LABS: Anion Gap 17 (12-20); Blood Urea Nitrogen 10 mg/dL (9-16); Carbon Dioxide 14 mmol/L (22-29); Chloride 115 mmol/L (96-108); Estimated Glomerular Filt Rate 55; Glucose Random 312 mg/dL (60-115); Potassium 4.6 mmol/l (3.3-5.1); Sodium 141 mmol/L (135-145)
[2020-12-01 07:55] LABS: Calcium 7.2 mg/dL (8.4-10.2)
[2020-12-01 08:13] LABS: Glucose, Whole Blood 286 mg/dL (60-115)
[2020-12-01] MEDS: Aspirin 81 MG TAB.CHEW PO ×2 (08:31→21:35)
[2020-12-01] MEDS: 0.9 % Sodium Chloride Flush 3 ML SYRINGE IVFLUSH ×2 (08:31→20:02)
[2020-12-01] MEDS: Lithium Carbonate 300 MG TABLET 150 MG PO ×2 (08:32→21:38)
[2020-12-01] MEDS: carBAMazepine 100 MG TAB.CHEW 300 MG PO ×2 (08:32→21:36)
[2020-12-01] MEDS: Metoprolol Tartrate 25 MG TABLET 12.5 MG PO ×2 (08:32→21:39)
[2020-12-01] MEDS: Heparin Sodium,Porcine 5,000 UNIT/ML VIAL 5000 UNIT SUBCUT ×2 (08:33→21:37)
[2020-12-01] MEDS: cefTRIAXone sodium 1 GM in 0.9 % Sodium Chloride 50 ML IV (08:34)
[2020-12-01] MEDS: Insulin Lispro 100 UNIT/ML 3 ML VIAL SUBCUT ×3 (08:35→21:38)
[2020-12-01 11:09] LABS: MANUAL DIFF FLAG NO
[2020-12-01 11:12] LABS: Basophils Percent Auto 0.4 % (0-2); Eosinophils Absolute Auto 0.2 X10*3/uL (0.0-0.4); Eosinophils Percent Auto 2.2 % (0-4); Hematocrit 33.2 % (37-47); Hemoglobin 10.4 g/dl (12.0-16.0); Imm Gran Abs Auto 0.15 X10*3/uL (0.00-0.03); Imm Gran Pct Auto 2.2 % (0.0-0.4); Lymphocytes Percent Auto 29.9 % (20-40); Mean Corpuscular HGB Conc 31.3 g/dl (31.0-35.0); Mean Corpuscular Hemoglobin 30.8 pg (27.0-33.0); Mean Corpuscular Volume 98.2 fL (80-98); Mean Platelet Volume 10.2 fL (9.4-12.3); Monocytes Absolute Auto 0.3 X10*3/uL (0.1-1.2); Monocytes Percent Auto 5.1 % (2-11); Neutrophils Percent Auto 60.2 % (45-73); Platelet Count 204 X10*3/uL (160-400); Red Blood Count 3.38 X10*6/uL (4.20-5.50); Red Cell Distribution Width 13.2 % (11.0-16.0); White Blood Count 6.7 X10*3/uL (4.8-10.8)
[2020-12-01 12:18] LABS: Glucose, Whole Blood 369 mg/dL (60-115)
--- NOTE | 2020-12-01 12:27 | HO.PM.IMPN ---
Subjective Subjective Date of Service: 12/01/20 Interval History: Patient was seen and evaluated this morning Looks better today, smiling and eating in her room Have difficulty speech is from aphasia No reported fever, chills overnight Asked to drink plenty of water Systematic review Difficult as a result of aphasia and difficulty speaking Physical Exam Vital Signs: Vital Signs: Last Vital Signs Temp 98.2 F 12/01/20 11:46 Pulse 67 12/01/20 11:46 Resp 17 12/01/20 11:46 BP 102/54 L 12/01/20 11:46 Pulse Ox 93 12/01/20 11:46 Body Mass Index 31.8 Const: Other: Constitutional : Alert, weak, not in distress Neck : Normal inspection, Supple Cardiovascular : RRR, S1 S2, no lower extremity edema Respiratory : Good bilateral air entry, no crackles, wheezes or rhonchi Gastrointestinal: soft, lax, Normal bowel sounds, Non tender Skin : Warm/Dry, No rash Neurological : Alert, difficult to assess orientation, No focal deficit Objective Data Current Medications Generic Name Dose Route Start Last Admin Trade Name Andreiq PRN Reason Stop Dose Admin Acetaminophen 650 mg 11/25/20 20:27 11/30/20 17:32 Acetaminophen 325 Mg Tablet PO 650 mg Q6H PRN Administration Pain, Mild (Pain Scale 1-3) Acetaminophen 650 mg 11/25/20 20:27 Acetaminophen 325 Mg Tablet PO Q4H PRN Pain Aspirin 81 mg 11/25/20 21:00 12/01/20 08:31 Aspirin 81 Mg Tab.Chew PO 81 mg BID TIM Administration Atorvastatin Calcium 40 mg 11/25/20 21:00 11/30/20 21:22 Atorvastatin Calcium 40 Mg Tablet PO 40 mg BEDTIME TIM Administration Calcium Carbonate 750 mg 11/25/20 20:46 Calcium Carbonate 750 Mg Tab.Chew PO DAILY PRN Acid Reflux Carbamazepine 300 mg 11/25/20 21:00 12/01/20 08:32 Carbamazepine 100 Mg Tab.Chew PO 300 mg BID TIM Administration Docusate Sodium 100 mg 11/25/20 21:00 12/01/20 08:48 Docusate Sodium 100 Mg Capsule PO Not Given BID TIM Haloperidol 15 mg 11/25/20 21:00 11/30/20 21:22 Haloperidol 5 Mg Tablet PO 15 mg BEDTIME TIM Administration Heparin Sodium (Porcine) 5,000 unit 11/25/20 21:00 12/01/20 08:33 Heparin Sodium,Porcine 5,000 Unit/Ml Vial SUBCUT 5,000 unit Q12H TIM Administration Ceftriaxone Sodium 1 gm/ 50 mls @ 100 mls/hr 11/26/20 09:00 12/01/20 10:01 Sodium Chloride IV Infused Q24H TIM Infusion Insulin Glargine 25 unit 12/01/20 21:00 Insulin Glargine,Hum.Rec.Anlog 100 Unit/Ml 10 Ml Vial SUBCUT BEDTIME TIM Insulin Human Lispro 0 unit 11/25/20 21:00 12/01/20 08:35 Insulin Lispro 100 Unit/Ml 3 Ml Vial SUBCUT 10 unit QIDACHS [facility] Administration Protocol [place] Carbonate 150 mg 11/25/20 21:00 12/01/20 08:32 [place] Carbonate 300 Mg Tablet PO 150 mg BID TIM Administration Metoprolol Tartrate 12.5 mg 11/25/20 21:00 12/01/20 08:32 Metoprolol Tartrate 25 Mg Tablet PO 12.5 mg BID [facility] Administration Protocol Ondansetron HCl 4 mg 11/25/20 20:27 Ondansetron Hcl 4 Mg/2 Ml Vial IVPUSH Q8H PRN Nausea and Vomiting Pharmacy Consult 1 each 11/25/20 13:42 Consult Rx Perform Med Rec MISCELLANE ONCE PRN Consult order Senna 17 mg 11/25/20 21:00 11/30/20 21:22 Sennosides 8.6 Mg Tablet PO 17 mg BEDTIME [facility] Administration Sodium Chloride 3 ml 11/26/20 00:00 12/01/20 08:31 0.9 % Sodium Chloride Flush 3 Ml Syringe IVFLUSH 3 ml QSHIFT [facility] Administration Labs CBC & Chem 7: 12/01/20 11:00 12/01/20 06:55 Microbiology Microbiology Results: Microbiology 11/25/20 15:09 Blood - Venous Blood Culture - Final No growth after 5 days. 11/25/20 15:09 Blood - Venous Blood Culture - Final No growth after 5 days. 11/25/20 00:00 Urine [place]gen [place] Urine Culture - Final Escherichia coli Assessment and Plan (1) Acute UTI: Status: Acute (2) Hypernatremia: Status: Acute (3) COVID-19 virus infection: Status: Acute (4) Metabolic encephalopathy: Status: Acute Assessment and Plan: 70 year old women admitted with multiple issues including Sepsis secondary to UTI. Sepsis , resolved secondary to UTI Continue IV antibiotic Urine culture growing E coli Blood culture negative Supportive manage Hypernatremia Improved to 145 overnight Hold IV fluids encourage oral hydration Nephrology consulted Monitor sodium LANIE. Resolved DC IV fluids. Monitor kidney function Avoid nephrotoxic metabolic encephalopathy Improving, secondary to electrolyte imbalance, UTI Ammonia level was elevatedon admission at 60 LFTs were mildly elevated on admission trended down to normal CT abdomen shows hepatic steatosis Started on lactulose Normal ammonia today Hyperkalemia resolved COVID 19. Diagnosed previously. No hypoxia noted. Hold odd on antibiotics and steroids for now. Continue supportive manage Diabetes. Continue Sliding scale, ADA diet CVA. Aphasic, left sided paraplegia. Chronic. Continue aspirin and statin HLD. statin DVT prophylaxis with Heparin
[2020-12-01 17:05] LABS: Glucose, Whole Blood 228 mg/dL (60-115)
--- NOTE | 2020-12-01 19:20 | P.PNNP_ITS ---
Subjective Subjective Date of Service: 12/01/20 Interval history: Seen and examined. Events above noted Physical Exam Vital Signs: Vital Signs: Last Vital Signs Temp 98.0 F 12/01/20 16:00 Pulse 66 12/01/20 16:00 Resp 20 12/01/20 16:00 BP 132/66 12/01/20 16:00 Pulse Ox 96 12/01/20 16:00 Body Mass Index 31.8 Const: General: ill appearing Cardio: Heart sounds: no murmurs and no rubs GI: Auscultation: normal bowel sounds Objective Data Labs CBC & Chem 7: 12/01/20 11:00 12/01/20 06:55 Labs: Laboratory Results - last 24 hr 11/30/20 12/01/20 12/01/20 20:23 06:55 06:55 WBC Cancelled RBC Cancelled Hgb Cancelled Hct Cancelled MCV Cancelled MCH Cancelled MCHC Cancelled RDW Cancelled Plt Count Cancelled MPV Cancelled Immature Gran % (Auto) Cancelled Neut % (Auto) Cancelled Lymph % (Auto) Cancelled Lawrence % (Auto) Cancelled Eos % (Auto) Cancelled Baso % (Auto) Cancelled Lymph # (Auto) Cancelled Lawrence # (Auto) Cancelled Eos # (Auto) Cancelled Baso # (Auto) Cancelled Abs Immat Gran (auto) Cancelled Absolute Neuts (auto) Cancelled Absolute Nucleated RBC Cancelled Nucleated RBC % (auto) Cancelled Sodium 141 Potassium 4.6 Chloride 115 H Carbon Dioxide 14 L Anion Gap 17 BUN 10 Creatinine 1.00 Estim Creat Clear Calc 57.0 Estimated GFR 55 POC Glucose 262 H Random Glucose 312 H Calcium 7.2 L D 12/01/20 12/01/20 12/01/20 07:46 11:00 11:49 WBC 6.7 RBC 3.38 L Hgb 10.4 L Hct 33.2 L MCV 98.2 H MCH 30.8 MCHC 31.3 RDW 13.2 Plt Count 204 MPV 10.2 Immature Gran % (Auto) 2.2 H Neut % (Auto) 60.2 Lymph % (Auto) 29.9 Lawrence % (Auto) 5.1 Eos % (Auto) 2.2 Baso % (Auto) 0.4 Lymph # (Auto) 2.0 Lawrence # (Auto) 0.3 Eos # (Auto) 0.2 Baso # (Auto) 0.0 Abs Immat Gran (auto) 0.15 H Absolute Neuts (auto) 4.0 Absolute Nucleated RBC 0.000 Nucleated RBC % (auto) 0.0 Sodium Potassium Chloride Carbon Dioxide Anion Gap BUN Creatinine Estim Creat Clear Calc Estimated GFR POC Glucose 286 H 369 H* Random Glucose Calcium 12/01/20 16:54 WBC RBC Hgb Hct MCV MCH MCHC RDW Plt Count MPV Immature Gran % (Auto) Neut % (Auto) Lymph % (Auto) Lawrence % (Auto) Eos % (Auto) Baso % (Auto) Lymph # (Auto) Lawrence # (Auto) Eos # (Auto) Baso # (Auto) Abs Immat Gran (auto) Absolute Neuts (auto) Absolute Nucleated RBC Nucleated RBC % (auto) Sodium Potassium Chloride Carbon Dioxide Anion Gap BUN Creatinine Estim Creat Clear Calc Estimated GFR POC Glucose 228 H Random Glucose Calcium Microbiology Microbiology Results: Microbiology 11/25/20 15:09 Blood - Venous Blood Culture - Final No growth after 5 days. 11/25/20 15:09 Blood - Venous Blood Culture - Final No growth after 5 days. 11/25/20 00:00 Urine Virgen Port Urine Culture - Final Escherichia coli Assessment & Plan Assessment and plan (1) LANIE (acute kidney injury): Status: Acute Assessment and Plan: 1. HyperNa: improved today 2. NAGMA: ques diarrhea REC: start nahco3, check lactate level in am; track SNa as may need additional IV hypotonic fluids Time Spent With Patient Time: Total time spent is greater than 50% in coordination of care (as documented) at patient's floor/unit and/or counseling patient:
[2020-12-01 21:06] LABS: Glucose, Whole Blood 192 mg/dL (60-115)
[2020-12-01] MEDS: Atorvastatin Calcium 40 MG TABLET PO (21:36)
[2020-12-01] MEDS: HaloperidoL 5 MG TABLET 15 MG PO (21:37)
[2020-12-01] MEDS: Insulin Glargine,Hum.rec.anlog 100 UNIT/ML 10 ML VIAL 25 UNIT SUBCUT (21:37)
[2020-12-02] VITALS: BP 117/62; PULSE 75; RESP 18; TEMP 36.6; O2SAT 97
[2020-12-02] MEDS: 0.9 % Sodium Chloride Flush 3 ML SYRINGE IVFLUSH ×3 (01:56→15:55)
[2020-12-02 04:00] VITALS: BP 116/57; PULSE 75; RESP 18; TEMP 36.8; O2SAT 95
[2020-12-02 07:36] LABS: Glucose, Whole Blood 194 mg/dL (60-115)
[2020-12-02 08:00] VITALS: BP 96/50; PULSE 63; RESP 20; O2SAT 92
[2020-12-02] MEDS: cefTRIAXone sodium 1 GM in 0.9 % Sodium Chloride 50 ML IV (09:10)
[2020-12-02] MEDS: Lithium Carbonate 300 MG TABLET 150 MG PO ×2 (09:11→21:40)
[2020-12-02] MEDS: Insulin Lispro 100 UNIT/ML 3 ML VIAL SUBCUT ×3 (09:11→17:34)
[2020-12-02] MEDS: Aspirin 81 MG TAB.CHEW PO ×2 (09:11→21:36)
[2020-12-02] MEDS: Docusate Sodium 100 MG CAPSULE PO ×2 (09:11→21:36)
[2020-12-02] MEDS: carBAMazepine 100 MG TAB.CHEW 300 MG PO ×2 (09:11→21:36)
[2020-12-02] MEDS: Heparin Sodium,Porcine 5,000 UNIT/ML VIAL 5000 UNIT SUBCUT ×2 (09:11→21:36)
--- NOTE | 2020-12-02 10:44 | MHC.SLORD ---
Patient was sleeping when FUNDS DEVELOPMENT DIRECTOR arrived. She awoke after several minutes to sternal rub. However, patient began shouting and refused to open her mouth for PO trials. Patient is not appropriate for dysphagia treatment this morning. Plan to re-attempt tomorrow morning. Name: Sanjuana Darby Date of : 1950 Age: 70 Date of Registration: 11/25/20 Speech Language Pathology Order Status:
[2020-12-02 11:13] LABS: Anion Gap 13 (12-20); Blood Urea Nitrogen 10 mg/dL (9-16); Calcium 7.6 mg/dL (8.4-10.2); Carbon Dioxide 22 mmol/L (22-29); Chloride 112 mmol/L (96-108); Creatinine Clr Calc Pharmacy 50.3; Estimated Glomerular Filt Rate 48; Glucose Random 206 mg/dL (60-115); Potassium 3.6 mmol/l (3.3-5.1); Sodium 143 mmol/L (135-145)
[2020-12-02 11:29] VITALS: BP 116/56; PULSE 62; RESP 19; TEMP 36.5; O2SAT 93
[2020-12-02 12:01] LABS: Glucose, Whole Blood 174 mg/dL (60-115)
--- NOTE | 2020-12-02 12:22 | P.CDIC_ITS ---
CDI Concurrent Query Service Date: 12/02/20 Documentation Clarification: Please clarify if you are treating a proba ble/suspected/likely or confirmed: Covid-19 presumed Covid-19 positive Covid-19 resolved, poa, rule out Please specify if known Provider Response: Other Other Diagnosis: Covid 19 infection PLEASE DO NOT DELETE/MODIFY EXISTING CONTENT Additional information is needed in order to code to the highest accuracy and appropriate Severity of Illness (SOI). Please clarify the information noted below in your progress notes and discharge summary. Risk Factors/Clinical Indicators/Treatments Sepsis UTI ED: concern for worsening covid-19/viral syndrome vs aspiration pna vs UTI/other infectious or metabolic etiology. H&P: Covid - previously diagnosed on 11/15- no hypoxemia noted, hold antibiotics and steroids for now. Temp 102 RR 30 HR 102 CRP 18.06 LA 1.6 abnormal UA. CDS: Claudia Chi CCS, CDIS Contact Number: [phone] Please Review the information above and exercise your independent professional judgment in responding to the query. If you concur, pleas document in the PROGRESS NOTES and DISCHARGE SUMMARY. If you do not agree with the query, please document in the query above. THIS QUERY IS PART OF THE PERMANENT MEDICAL RECORD
--- NOTE | 2020-12-02 13:12 | MHC.CM.PN ---
Patient continues on IV Ceftriaxone for +UTI. Discharge plan is to return to [facility] via S transport. CM will continue to follow patient for discharge needs.
--- NOTE | 2020-12-02 14:59 | HO.PM.IMPN ---
Subjective Subjective Date of Service: 12/02/20 Interval History: Patient was seen and evaluated this morning Sleepy and difficult to arouse in the morning, improved in the afternoon Have difficulty speech is from aphasia No reported fever, chills overnight Asked to drink plenty of water Systematic review Difficult as a result of aphasia and difficulty speaking Physical Exam Vital Signs: Vital Signs: Last Vital Signs Temp 97.7 F 12/02/20 11:29 Pulse 62 12/02/20 11:29 Resp 19 12/02/20 11:29 BP 116/56 L 12/02/20 11:29 Pulse Ox 93 12/02/20 11:29 Body Mass Index 31.8 Const: Other: Constitutional : Difficult to arouse, sleepy, weak, not in distress Neck : Normal inspection, Supple Cardiovascular : RRR, S1 S2, no lower extremity edema Respiratory : Good bilateral air entry, no crackles, wheezes or rhonchi Gastrointestinal: soft, lax, Normal bowel sounds, Non tender Skin : Warm/Dry, No rash Neurological : Sleepy, improved after waking up,, difficult to assess orientation, No focal deficit Objective Data Current Medications Generic Name Dose Route Start Last Admin Trade Name Freq PRN Reason Stop Dose Admin Acetaminophen 650 mg 11/25/20 20:27 11/30/20 17:32 Acetaminophen 325 Mg Tablet PO 650 mg Q6H PRN Administration Pain, Mild (Pain Scale 1-3) Acetaminophen 650 mg 11/25/20 20:27 Acetaminophen 325 Mg Tablet PO Q4H PRN Pain Aspirin 81 mg 11/25/20 21:00 12/02/20 09:11 Aspirin 81 Mg Tab.Chew PO 81 mg BID TIM Administration Atorvastatin Calcium 40 mg 11/25/20 21:00 12/01/20 21:36 Atorvastatin Calcium 40 Mg Tablet PO 40 mg BEDTIME TIM Administration Calcium Carbonate 750 mg 11/25/20 20:46 Calcium Carbonate 750 Mg Tab.Chew PO DAILY PRN Acid Reflux Carbamazepine 300 mg 11/25/20 21:00 12/02/20 09:11 Carbamazepine 100 Mg Tab.Chew PO 300 mg BID TIM Administration Docusate Sodium 100 mg 11/25/20 21:00 12/02/20 09:11 Docusate Sodium 100 Mg Capsule PO 100 mg BID TIM Administration Haloperidol 10 mg 12/02/20 21:00 Haloperidol 5 Mg Tablet PO BEDTIME TIM Heparin Sodium (Porcine) 5,000 unit 11/25/20 21:00 12/02/20 09:11 Heparin Sodium,Porcine 5,000 Unit/Ml Vial SUBCUT 5,000 unit Q12H TIM Administration Insulin Glargine 25 unit 12/01/20 21:00 12/01/20 21:37 Insulin Glargine,Hum.Rec.Anlog 100 Unit/Ml 10 Ml Vial SUBCUT 25 unit BEDTIME TIM Administration Insulin Human Lispro 0 unit 11/25/20 21:00 12/02/20 11:45 Insulin Lispro 100 Unit/Ml 3 Ml Vial SUBCUT 2 unit QIDACHS [facility] Administration Protocol [place] Carbonate 150 mg 11/25/20 21:00 12/02/20 09:11 [place] Carbonate 300 Mg Tablet PO 150 mg BID [facility] Administration Metoprolol Tartrate 12.5 mg 11/25/20 21:00 12/01/20 21:39 Metoprolol Tartrate 25 Mg Tablet PO 12/02/20 18:00 12.5 mg BID [facility] Administration Protocol Ondansetron HCl 4 mg 11/25/20 20:27 Ondansetron Hcl 4 Mg/2 Ml Vial IVPUSH Q8H PRN Nausea and Vomiting Pharmacy Consult 1 each 11/25/20 13:42 Consult Rx Perform Med Rec MISCELLANE ONCE PRN Consult order Senna 17 mg 11/25/20 21:00 12/01/20 21:39 Sennosides 8.6 Mg Tablet PO Not Given BEDTIME [facility] Sodium Chloride 3 ml 11/26/20 00:00 12/02/20 09:10 0.9 % Sodium Chloride Flush 3 Ml Syringe IVFLUSH 3 ml QSHIFT [facility] Administration Labs CBC & Chem 7: 12/01/20 11:00 12/02/20 10:09 Microbiology Microbiology Results: Microbiology 11/25/20 15:09 Blood - Venous Blood Culture - Final No growth after 5 days. 11/25/20 15:09 Blood - Venous Blood Culture - Final No growth after 5 days. 11/25/20 00:00 Urine Virgen Port Urine Culture - Final Escherichia coli Assessment and Plan (1) Acute UTI: Status: Acute (2) Hypernatremia: Status: Acute (3) COVID-19 virus infection: Status: Acute (4) Metabolic encephalopathy: Status: Acute Assessment and Plan: 70 year old women admitted with multiple issues including Sepsis secondary to UTI. Sepsis , resolved secondary to UTI Finish total of 7 days of IV ceftriaxone Urine culture growing E coli Blood culture negative Supportive manage Hypernatremia Improved back to normal Hold IV fluids encourage oral hydration Nephrology input appreciated Monitor sodium LANIE. Resolved DC IV fluids. Monitor kidney function Avoid nephrotoxic metabolic encephalopathy Likely secondary to medications , prolonged hospital stay, infection, electrolyte imbalance Ammonia level was elevatedon admission at 60 LFTs were mildly elevated on admission trended down to normal CT abdomen shows hepatic steatosis Continue lactulose Normal ammonia today Decrease Haldol to 10 mg at bedtime only Hyperkalemia resolved COVID 19. Diagnosed previously. No hypoxia noted. Hold odd on antibiotics and steroids for now. Continue supportive manage Repeat COVID test for placement Diabetes. Continue Sliding scale, ADA diet CVA. Aphasic, left sided paraplegia. Chronic. Continue aspirin and statin HLD. statin DVT prophylaxis with Heparin
[2020-12-02 16:00] VITALS: BP 105/59; PULSE 69; RESP 22; TEMP 36.9; O2SAT 96
[2020-12-02 16:51] LABS: Glucose, Whole Blood 155 mg/dL (60-115)
[2020-12-02 19:21] VITALS: BP 106/61; PULSE 73; RESP 18; O2SAT 93
[2020-12-02 20:11] LABS: COVID-19 Test Negative (Negative)
[2020-12-02 21:28] LABS: Glucose, Whole Blood 125 mg/dL (60-115)
[2020-12-02] MEDS: Atorvastatin Calcium 40 MG TABLET PO (21:36)
[2020-12-02] MEDS: Sennosides 8.6 MG TABLET 17 MG PO (21:36)
[2020-12-02] MEDS: HaloperidoL 5 MG TABLET 10 MG PO (21:37)
[2020-12-02] MEDS: Insulin Glargine,Hum.rec.anlog 100 UNIT/ML 10 ML VIAL 25 UNIT SUBCUT (21:38)
[2020-12-03] VITALS: BP 112/59; PULSE 79; RESP 18; TEMP 36.9; O2SAT 99
[2020-12-03] MEDS: 0.9 % Sodium Chloride Flush 3 ML SYRINGE IVFLUSH ×2 (00:50→07:38)
[2020-12-03 04:00] VITALS: BP 132/62; PULSE 83; RESP 20; TEMP 37.1; O2SAT 96
--- NOTE | 2020-12-03 05:50 | PC.NURSE ---
7p-7a shift; pt DTV #1 at [address], pt incontinent of urine and about 150 mls of yellow urine noted in the suction canister. At 129 and 399 pt incontinent of urine again. Bladder scanned patient at 0400 for 71 mls. Continue to monitor.
[2020-12-03 06:51] LABS: Anion Gap 12 (12-20); Blood Urea Nitrogen 9 mg/dL (9-16); Carbon Dioxide 22 mmol/L (22-29); Chloride 115 mmol/L (96-108); Creatinine Clr Calc Pharmacy 58.1; Estimated Glomerular Filt Rate 56; Glucose Random 150 mg/dL (60-115); Potassium 3.6 mmol/l (3.3-5.1); Sodium 145 mmol/L (135-145)
[2020-12-03 06:54] LABS: Hematocrit 34.8 % (37-47); Hemoglobin 10.5 g/dl (12.0-16.0); Mean Corpuscular HGB Conc 30.2 g/dl (31.0-35.0); Mean Corpuscular Hemoglobin 30.2 pg (27.0-33.0); Mean Platelet Volume 10.2 fL (9.4-12.3); Platelet Count 229 X10*3/uL (160-400); Red Blood Count 3.48 X10*6/uL (4.20-5.50); Red Cell Distribution Width 13.4 % (11.0-16.0); White Blood Count 5.5 X10*3/uL (4.8-10.8)
[2020-12-03] MEDS: carBAMazepine 100 MG TAB.CHEW 300 MG PO (07:36)
[2020-12-03] MEDS: Aspirin 81 MG TAB.CHEW PO (07:37)
[2020-12-03] MEDS: Lithium Carbonate 300 MG TABLET 150 MG PO (07:37)
[2020-12-03] MEDS: Heparin Sodium,Porcine 5,000 UNIT/ML VIAL 5000 UNIT SUBCUT (07:38)
[2020-12-03 07:43] LABS: Glucose, Whole Blood 145 mg/dL (60-115)
[2020-12-03 08:00] VITALS: BP 125/65; PULSE 71; RESP 20; TEMP 36.5; O2SAT 92
--- NOTE | 2020-12-03 11:37 | MHC.CM.PN ---
Patient will be discharged today back to [facility] at 1pm via BLS transport. Nurse and HCP Henna are aware.
--- NOTE | 2020-12-03 11:47 | P.DS_ITS ---
DS: Providers Provider Date of Service: 12/03/20 Date of admission: 11/25/20 20:27 Primary care physician: Matheus Gonzales MD Consults: 11/27/20 11:18 Consult to Nephrology Routine Consulting Provider: Pete David Reason for consultation: Lanie hypernatremia DS: Diagnosis Discharge Diagnosis (1) Acute UTI: Status: Acute (2) Hypernatremia: Status: Acute (3) COVID-19 virus infection: Status: Acute (4) Metabolic encephalopathy: Status: Acute (5) LANIE (acute kidney injury): Status: Acute (6) Sepsis: Status: Acute DS: Medications Discharge Medications Home Medications: Home Medications Medication Instructions Recorded Confirmed acetaminophen 650 mg PO Q4H PRN 11/25/20 11/25/20 aspirin 81 mg PO BID 11/25/20 11/25/20 atorvastatin 40 mg PO BEDTIME 11/25/20 11/25/20 calcium carbonate 500 mg PO DAILY PRN 11/25/20 11/25/20 carbamazepine 300 mg PO BID 11/25/20 11/25/20 docusate sodium [Colace] 100 mg PO BID 11/25/20 11/25/20 insulin aspart U-100 [Novolog See Rx Instructions .ROUTE .COMPLEX 11/25/20 11/25/20 Flexpen U-100 Insulin] insulin detemir U-100 32 unit SUBCUT BEDTIME 11/25/20 11/25/20 lithium carbonate 150 mg PO BID 11/25/20 11/25/20 metoprolol tartrate 12.5 mg PO BID 11/25/20 11/25/20 sennosides [senna] 17 mg PO BEDTIME 11/25/20 11/25/20 Previous Rx's Medication Instructions Recorded haloperidol 10 mg PO BEDTIME #0 tab 12/03/20 DS: Summary Hospital Course Hospital Course: Admission note HPI 70 year old women presenting from long term facility with increased lethargy, fever and decreased oral intake. 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 She was diagnosed with COVID and early November. She was noted to have a fever of 102, heart rate 102, respiratory rate 30. She was not noted to be hypoxic at any point. Her sodium was elevated at 148, potassium 5.4, creatinine 1.2 with history of chronic kidney disease. Ferritin 1163, LDH 422, CRP 18.06. Chest x-ray was negative for consolidation or effusion. in the ER, she received Tylenol, cefepime, albuterol, acetaminophen, IV fluid. She will be admitted for further management and treatment of sepsis secondary to UTI. Hospital course The patient was treated for sepsis at time of presentation secondary to UTI. Urine culture grew E coli bacteria. Blood cultures remain negative. Treated with 7 days of IV ceftriaxone. She was noted to have acute kidney injury secondary to dehydration along with Hypernatremia and hyperkalemia. Treated with IV fluid with good response over the course of hospital stay as both kidney injury and sodium level returned back to normal baseline. Nephrology closely follow the patient during the hospital stay. She was noted to have metabolic encephalopathy. Likely secondary to medications , prolonged hospital stay, infection, electrolyte imbalance. Was noted to have mildly elevated ammonia level which improved with lactulose usage. CT scan of the abdomen was consistent with hepatic steatosis but no cirrhosis. Her mental status improved during the hospital stay after correcting the sepsis, electrolyte imbalance and kidney injury but she was noted to be encephalopathic on other episodes. Likely a result of high dose of Haldol. Decrease to 10 mg at bedtime with good response as the patient was more interactive and responsive. To decrease that dose at time of discharge to 10 mg. COVID 19. Diagnosed previously. No hypoxia noted. Did not receive any active treatment during the hospital stay. Repeated COVID-19 test came back negative. Time Spent with Patient Time attestation: Total time spent providing and/or coordinating discharge services: Discharge coordination time: Greater than 30 minutes Physical Exam Vital Signs: Vital Signs: Last Vital Signs Temp 97.7 F 12/03/20 08:00 Pulse 71 12/03/20 08:00 Resp 20 12/03/20 08:00 BP 125/65 12/03/20 08:00 Pulse Ox 92 12/03/20 08:00 Body Mass Index 31.8 Const: Other: Constitutional : Alert, interactive, nonverbal, not in distress Neck : Normal inspection, Supple Cardiovascular : RRR, S1 S2, no lower extremity edema Respiratory : Good bilateral air entry, no crackles, wheezes or rhonchi Gastrointestinal: soft, lax, Normal bowel sounds, Non tender Skin : Warm/Dry, No rash Neurological : Alert, interactive, and for, difficult to assess orientation, No other focal deficit DS: Data Data Completed and Pending Labs on day of discharge: Laboratory Tests 11/25/20 11/25/20 11/25/20 13:16 14:08 15:09 WBC 7.9 RBC 4.07 L Hgb 12.3 Hct 42.7 MCV 104.9 H MCH 30.2 MCHC 28.8 L RDW 14.0 Plt Count 261 MPV 9.2 L Immature Gran % (Auto) 0.9 H Neut % (Auto) 71.8 Lymph % (Auto) 22.9 [place] % (Auto) 4.3 Eos % (Auto) 0.1 Baso % (Auto) 0.0 Lymph # (Auto) 1.8 [place] # (Auto) 0.3 Eos # (Auto) 0.0 Baso # (Auto) 0.0 Abs Immat Gran (auto) 0.07 H Absolute Neuts (auto) 5.7 Absolute Nucleated RBC 0.000 Nucleated RBC % (auto) 0.0 Smear Tech's Comments VERIFIED PT INR APTT Sodium Potassium Chloride Carbon Dioxide Anion Gap BUN Creatinine Estim Creat Clear Calc Estimated GFR POC Glucose 207 H Random Glucose Osmolality Lactic Acid Calcium Magnesium Ferritin Total Bilirubin Direct Bilirubin AST ALT Alkaline Phosphatase Ammonia Lactate Dehydrogenase C-Reactive Protein B-Natriuretic Peptide Total Protein Albumin Lipase Procalcitonin Urine Color YELLOW Urine Appearance CLOUDY Urine pH 5.5 Ur Specific [place] >= 1.030 H Urine Protein 2+ H Urine Glucose (UA) NEG Urine Ketones 15 Urine Blood 3+ H Urine Nitrite NEG Ur Leukocyte Esterase TRACE H Urine RBC 76-150 H Urine WBC 15-29 H Ur Squamous Epith Cells 1+ Urine Bacteria 3+ COVID-19 (GUILLERMINA) COVID-19 Clin Com 11/25/20 11/25/20 11/25/20 15:09 15:09 16:02 WBC RBC Hgb Hct MCV MCH MCHC RDW Plt Count MPV Immature Gran % (Auto) Neut % (Auto) Lymph % (Auto) [place] % (Auto) Eos % (Auto) Baso % (Auto) Lymph # (Auto) [place] # (Auto) Eos # (Auto) Baso # (Auto) Abs Immat Gran (auto) Absolute Neuts (auto) Absolute Nucleated RBC Nucleated RBC % (auto) Smear Tech's Comments PT INR APTT Sodium 148 H Potassium 5.4 H Chloride 113 H Carbon Dioxide 17 L Anion Gap 23 H BUN 33 H Creatinine 1.82 H Estim Creat Clear Calc 31.3 Estimated GFR 27 POC Glucose Random Glucose 300 H Osmolality Lactic Acid 1.6 Calcium 7.8 L Magnesium 2.7 H Ferritin Total Bilirubin 0.3 Direct Bilirubin 0.3 AST 54 H ALT 39 H Alkaline Phosphatase 104 Ammonia Lactate Dehydrogenase 422 H C-Reactive Protein 18.06 H B-Natriuretic Peptide 47 Total Protein 6.6 Albumin 3.3 L Lipase Procalcitonin Urine Color Urine Appearance Urine pH Ur Specific [place] Urine Protein Urine Glucose (UA) Urine Ketones Urine Blood Urine Nitrite Ur Leukocyte Esterase Urine RBC Urine WBC Ur Squamous Epith Cells Urine Bacteria COVID-19 (GUILLERMINA) COVID-19 Clin Com 11/25/20 11/25/20 11/25/20 16:02 16:02 16:02 WBC RBC Hgb Hct MCV MCH MCHC RDW Plt Count MPV Immature Gran % (Auto) Neut % (Auto) Lymph % (Auto) [place] % (Auto) Eos % (Auto) Baso % (Auto) Lymph # (Auto) [place] # (Auto) Eos # (Auto) Baso # (Auto) Abs Immat Gran (auto) Absolute Neuts (auto) Absolute Nucleated RBC Nucleated RBC % (auto) Smear Tech's Comments PT 15.3 H INR 1.3 H APTT 29.1 Sodium Potassium Chloride Carbon Dioxide Anion Gap BUN Creatinine Estim Creat Clear Calc Estimated GFR POC Glucose Random Glucose Osmolality Lactic Acid Calcium Magnesium Ferritin 1163 H Total Bilirubin Direct Bilirubin AST ALT Alkaline Phosphatase Ammonia Lactate Dehydrogenase C-Reactive Protein B-Natriuretic Peptide Total Protein Albumin Lipase 86 H Procalcitonin 1.55 Urine Color Urine Appearance Urine pH Ur Specific [place] Urine Protein Urine Glucose (UA) Urine Ketones Urine Blood Urine Nitrite Ur Leukocyte Esterase Urine RBC Urine WBC Ur Squamous Epith Cells Urine Bacteria COVID-19 (GUILLERMINA) COVID-19 Clin Com 11/25/20 11/26/20 11/26/20 21:01 04:07 04:10 WBC RBC Hgb Hct MCV MCH MCHC RDW Plt Count MPV Immature Gran % (Auto) Neut % (Auto) Lymph % (Auto) [place] % (Auto) Eos % (Auto) Baso % (Auto) Lymph # (Auto) [place] # (Auto) Eos # (Auto) Baso # (Auto) Abs Immat Gran (auto) Absolute Neuts (auto) Absolute Nucleated RBC Nucleated RBC % (auto) Smear Tech's Comments PT INR APTT Sodium Cancelled Potassium Cancelled Chloride Cancelled Carbon Dioxide Cancelled Anion Gap Cancelled BUN Cancelled Creatinine Cancelled Estim Creat Clear Calc Cancelled Estimated GFR Cancelled POC Glucose 277 H 228 H Random Glucose Cancelled Osmolality Lactic Acid Calcium Cancelled Magnesium Ferritin Total Bilirubin Direct Bilirubin AST ALT Alkaline Phosphatase Ammonia Lactate Dehydrogenase C-Reactive Protein B-Natriuretic Peptide Total Protein Albumin Lipase Procalcitonin Urine Color Urine Appearance Urine pH Ur Specific [place] Urine Protein Urine Glucose (UA) Urine Ketones Urine Blood Urine Nitrite Ur Leukocyte Esterase Urine RBC Urine WBC Ur Squamous Epith Cells Urine Bacteria COVID-19 (GUILLERMINA) COVID-19 [employer] 11/26/20 11/26/20 11/26/20 06:34 06:34 09:04 WBC 7.8 RBC 3.98 L Hgb 12.2 Hct 42.1 MCV 105.8 H MCH 30.7 MCHC 29.0 L RDW 14.4 Plt Count 255 MPV 10.0 Immature Gran % (Auto) 1.5 H Neut % (Auto) 62.4 Lymph % (Auto) 29.0 [place] % (Auto) 5.8 Eos % (Auto) 0.8 Baso % (Auto) 0.5 Lymph # (Auto) 2.3 [place] # (Auto) 0.5 Eos # (Auto) 0.1 Baso # (Auto) 0.0 Abs Immat Gran (auto) 0.12 H Absolute Neuts (auto) 4.9 Absolute Nucleated RBC 0.000 Nucleated RBC % (auto) 0.0 Smear Tech's Comments PT INR APTT Sodium 147 H Potassium 5.1 Chloride 119 H Carbon Dioxide 14 L Anion Gap 19 BUN 31 H Creatinine 1.50 H Estim Creat Clear Calc 37.9 Estimated GFR 34 POC Glucose 259 H Random Glucose 277 H Osmolality Lactic Acid Calcium 7.9 L Magnesium Ferritin Total Bilirubin Direct Bilirubin AST ALT Alkaline Phosphatase Ammonia Lactate Dehydrogenase C-Reactive Protein B-Natriuretic Peptide Total Protein Albumin Lipase Procalcitonin Urine Color Urine Appearance Urine pH Ur Specific [place] Urine Protein Urine Glucose (UA) Urine Ketones Urine Blood Urine Nitrite Ur Leukocyte Esterase Urine RBC Urine WBC Ur Squamous Epith Cells Urine Bacteria COVID-19 (GUILLERMINA) COVID-19 [employer] 11/26/20 11/26/20 11/26/20 11:50 15:05 16:35 WBC RBC Hgb Hct MCV MCH MCHC RDW Plt Count MPV Immature Gran % (Auto) Neut % (Auto) Lymph % (Auto) [place] % (Auto) Eos % (Auto) Baso % (Auto) Lymph # (Auto) [place] # (Auto) Eos # (Auto) Baso # (Auto) Abs Immat Gran (auto) Absolute Neuts (auto) Absolute Nucleated RBC Nucleated RBC % (auto) Smear Tech's Comments PT INR APTT Sodium Potassium Chloride Carbon Dioxide Anion Gap BUN Creatinine Estim Creat Clear Calc Estimated GFR POC Glucose 255 H 241 H Random Glucose Osmolality Lactic Acid Calcium Magnesium Ferritin Total Bilirubin Direct Bilirubin AST ALT Alkaline Phosphatase Ammonia 60 H Lactate Dehydrogenase C-Reactive Protein B-Natriuretic Peptide Total Protein Albumin Lipase Procalcitonin Urine Color Urine Appearance Urine pH Ur Specific [place] Urine Protein Urine Glucose (UA) Urine Ketones Urine Blood Urine Nitrite Ur Leukocyte Esterase Urine RBC Urine WBC Ur Squamous Epith Cells Urine Bacteria COVID-19 (GUILLERMINA) COVID-19 [employer] 11/26/20 11/27/20 11/27/20 20:29 07:41 09:47 WBC 5.9 RBC 3.71 L Hgb 11.3 L Hct 37.9 MCV 102.2 H MCH 30.5 MCHC 29.8 L RDW 14.0 Plt Count 246 MPV 9.5 Immature Gran % (Auto) 1.2 H Neut % (Auto) 68.1 Lymph % (Auto) 24.7 [place] % (Auto) 3.6 Eos % (Auto) 2.2 Baso % (Auto) 0.2 Lymph # (Auto) 1.5 [place] # (Auto) 0.2 Eos # (Auto) 0.1 Baso # (Auto) 0.0 Abs Immat Gran (auto) 0.07 H Absolute Neuts (auto) 4.0 Absolute Nucleated RBC 0.000 Nucleated RBC % (auto) 0.0 Smear Tech's Comments VERIFIED PT INR APTT Sodium Potassium Chloride Carbon Dioxide Anion Gap BUN Creatinine Estim Creat Clear Calc Estimated GFR POC Glucose 184 H 320 H Random Glucose Osmolality Lactic Acid Calcium Magnesium Ferritin Total Bilirubin Direct Bilirubin AST ALT Alkaline Phosphatase Ammonia Lactate Dehydrogenase C-Reactive Protein B-Natriuretic Peptide Total Protein Albumin Lipase Procalcitonin Urine Color Urine Appearance Urine pH Ur Specific [place] Urine Protein Urine Glucose (UA) Urine Ketones Urine Blood Urine Nitrite Ur Leukocyte Esterase Urine RBC Urine WBC Ur Squamous Epith Cells Urine Bacteria COVID-19 (GUILLERMINA) COVID-19 Clin Com 11/27/20 11/27/20 11/27/20 09:47 11:11 18:41 WBC RBC Hgb Hct MCV MCH MCHC RDW Plt Count MPV Immature Gran % (Auto) Neut % (Auto) Lymph % (Auto) [place] % (Auto) Eos % (Auto) Baso % (Auto) Lymph # (Auto) [place] # (Auto) Eos # (Auto) Baso # (Auto) Abs Immat Gran (auto) Absolute Neuts (auto) Absolute Nucleated RBC Nucleated RBC % (auto) Smear Tech's Comments PT INR APTT Sodium 152 H Potassium 4.9 Chloride 122 H Carbon Dioxide 21 L Anion Gap 14 BUN 29 H Creatinine 1.50 H Estim Creat Clear Calc 37.9 Estimated GFR 34 POC Glucose 274 H 210 H Random Glucose 359 H* Osmolality Lactic Acid Calcium 8.2 L Magnesium Ferritin Total Bilirubin < 0.2 Direct Bilirubin < 0.2 AST 22 D ALT 24 Alkaline Phosphatase 90 Ammonia Lactate Dehydrogenase C-Reactive Protein B-Natriuretic Peptide Total Protein 6.3 L Albumin 3.1 L Lipase Procalcitonin Urine Color Urine Appearance Urine pH Ur Specific [place] Urine Protein Urine Glucose (UA) Urine Ketones Urine Blood Urine Nitrite Ur Leukocyte Esterase Urine RBC Urine WBC Ur Squamous Epith Cells Urine Bacteria COVID-19 (GUILLERMINA) COVID-19 [employer] 11/27/20 11/28/20 11/28/20 20:18 05:17 05:17 WBC 6.4 RBC 3.59 L Hgb 10.8 L Hct 37.0 MCV 103.1 H MCH 30.1 MCHC 29.2 L RDW 14.1 Plt Count 258 MPV 9.6 Immature Gran % (Auto) 1.4 H Neut % (Auto) 62.3 Lymph % (Auto) 28.2 [place] % (Auto) 4.9 Eos % (Auto) 3.0 Baso % (Auto) 0.2 Lymph # (Auto) 1.8 [place] # (Auto) 0.3 Eos # (Auto) 0.2 Baso # (Auto) 0.0 Abs Immat Gran (auto) 0.09 H Absolute Neuts (auto) 4.0 Absolute Nucleated RBC 0.000 Nucleated RBC % (auto) 0.0 Smear Tech's Comments VERIFIED PT INR APTT Sodium 155 H Potassium 4.6 Chloride 125 H Carbon Dioxide 19 L Anion Gap 16 BUN 22 H Creatinine 1.36 Estim Creat Clear Calc 41.8 Estimated GFR 38 POC Glucose 224 H Random Glucose 361 H* Osmolality Lactic Acid Calcium 8.3 L Magnesium Ferritin Total Bilirubin Direct Bilirubin AST ALT Alkaline Phosphatase Ammonia Lactate Dehydrogenase C-Reactive Protein B-Natriuretic Peptide Total Protein Albumin Lipase Procalcitonin Urine Color Urine Appearance Urine pH Ur Specific [place] Urine Protein Urine Glucose (UA) Urine Ketones Urine Blood Urine Nitrite Ur Leukocyte Esterase Urine RBC Urine WBC Ur Squamous Epith Cells Urine Bacteria COVID-19 (GUILLERMINA) COVID-[employer] 11/28/20 11/28/20 11/28/20 08:55 11:55 16:37 WBC RBC Hgb Hct MCV MCH MCHC RDW Plt Count MPV Immature Gran % (Auto) Neut % (Auto) Lymph % (Auto) [place] % (Auto) Eos % (Auto) Baso % (Auto) Lymph # (Auto) [place] # (Auto) Eos # (Auto) Baso # (Auto) Abs Immat Gran (auto) Absolute Neuts (auto) Absolute Nucleated RBC Nucleated RBC % (auto) Smear Tech's Comments PT INR APTT Sodium Potassium Chloride Carbon Dioxide Anion Gap BUN Creatinine Estim Creat Clear Calc Estimated GFR POC Glucose 318 H 177 H Random Glucose Osmolality 343 H Lactic Acid Calcium Magnesium Ferritin Total Bilirubin Direct Bilirubin AST ALT Alkaline Phosphatase Ammonia Lactate Dehydrogenase C-Reactive Protein B-Natriuretic Peptide Total Protein Albumin Lipase Procalcitonin Urine Color Urine Appearance Urine pH Ur Specific [place] Urine Protein Urine Glucose (UA) Urine Ketones Urine Blood Urine Nitrite Ur Leukocyte Esterase Urine RBC Urine WBC Ur Squamous Epith Cells Urine Bacteria COVID-19 (GUILLERMINA) COVID-19 [employer] 11/28/20 11/29/20 11/29/20 20:05 05:39 05:39 WBC Cancelled RBC Cancelled Hgb Cancelled Hct Cancelled MCV Cancelled MCH Cancelled MCHC Cancelled RDW Cancelled Plt Count Cancelled MPV Cancelled Immature Gran % (Auto) Cancelled Neut % (Auto) Cancelled Lymph % (Auto) Cancelled [place] % (Auto) Cancelled Eos % (Auto) Cancelled Baso % (Auto) Cancelled Lymph # (Auto) Cancelled [place] # (Auto) Cancelled Eos # (Auto) Cancelled Baso # (Auto) Cancelled Abs Immat Gran (auto) Cancelled Absolute Neuts (auto) Cancelled Absolute Nucleated RBC Cancelled Nucleated RBC % (auto) Cancelled Smear Tech's Comments PT INR APTT Sodium 156 H Potassium 4.8 Chloride 125 H Carbon Dioxide 20 L Anion Gap 16 BUN 16 Creatinine 1.25 Estim Creat Clear Calc 45.6 Estimated GFR 42 POC Glucose 261 H Random Glucose 267 H Osmolality Lactic Acid Calcium 8.1 L Magnesium Ferritin Total Bilirubin Direct Bilirubin AST ALT Alkaline Phosphatase Ammonia Lactate Dehydrogenase C-Reactive Protein B-Natriuretic Peptide Total Protein Albumin Lipase Procalcitonin Urine Color Urine Appearance Urine pH Ur Specific [place] Urine Protein Urine Glucose (UA) Urine Ketones Urine Blood Urine Nitrite Ur Leukocyte Esterase Urine RBC Urine WBC Ur Squamous Epith Cells Urine Bacteria COVID-19 (GUILLERMINA) COVID-19 [employer] 11/29/20 11/29/20 11/29/20 05:39 07:55 08:57 WBC 7.3 RBC 3.96 L Hgb 12.0 Hct 40.8 MCV 103.0 H MCH 30.3 MCHC 29.4 L RDW 14.0 Plt Count 223 MPV Not Reportable Immature Gran % (Auto) 4.1 H Neut % (Auto) 51.3 Lymph % (Auto) 35.2 [place] % (Auto) 6.4 Eos % (Auto) 2.7 Baso % (Auto) 0.3 Lymph # (Auto) 2.6 [place] # (Auto) 0.5 Eos # (Auto) 0.2 Baso # (Auto) 0.0 Abs Immat Gran (auto) 0.30 H Absolute Neuts (auto) 3.8 Absolute Nucleated RBC 0.090 H Nucleated RBC % (auto) 1.2 H Smear Tech's Comments VERIFIED PT INR APTT Sodium Cancelled Potassium Cancelled Chloride Cancelled Carbon Dioxide Cancelled Anion Gap Cancelled BUN Cancelled Creatinine Cancelled Estim Creat Clear Calc Cancelled Estimated GFR Cancelled POC Glucose 244 H Random Glucose Cancelled Osmolality Lactic Acid Calcium Cancelled Magnesium Ferritin Total Bilirubin Direct Bilirubin AST ALT Alkaline Phosphatase Ammonia Lactate Dehydrogenase C-Reactive Protein B-Natriuretic Peptide Total Protein Albumin Lipase Procalcitonin Urine Color Urine Appearance Urine pH Ur Specific [place] Urine Protein Urine Glucose (UA) Urine Ketones Urine Blood Urine Nitrite Ur Leukocyte Esterase Urine RBC Urine WBC Ur Squamous Epith Cells Urine Bacteria COVID-19 (GUILLERMINA) COVID-19 [employer] 11/29/20 11/29/20 11/29/20 11:49 15:56 18:33 WBC RBC Hgb Hct MCV MCH MCHC RDW Plt Count MPV Immature Gran % (Auto) Neut % (Auto) Lymph % (Auto) [place] % (Auto) Eos % (Auto) Baso % (Auto) Lymph # (Auto) [place] # (Auto) Eos # (Auto) Baso # (Auto) Abs Immat Gran (auto) Absolute Neuts (auto) Absolute Nucleated RBC Nucleated RBC % (auto) Smear Tech's Comments PT INR APTT Sodium Potassium Chloride Carbon Dioxide Anion Gap BUN Creatinine Estim Creat Clear Calc Estimated GFR POC Glucose 242 H 274 H Random Glucose Osmolality Lactic Acid Calcium Magnesium Ferritin Total Bilirubin Direct Bilirubin AST ALT Alkaline Phosphatase Ammonia 43 Lactate Dehydrogenase C-Reactive Protein B-Natriuretic Peptide Total Protein Albumin Lipase Procalcitonin Urine Color Urine Appearance Urine pH Ur Specific [place] Urine Protein Urine Glucose (UA) Urine Ketones Urine Blood Urine Nitrite Ur Leukocyte Esterase Urine RBC Urine WBC Ur Squamous Epith Cells Urine Bacteria COVID-19 (GUILLERMINA) COVID-[employer] 11/29/20 11/30/20 11/30/20 19:42 08:00 11:45 WBC RBC Hgb Hct MCV MCH MCHC RDW Plt Count MPV Immature Gran % (Auto) Neut % (Auto) Lymph % (Auto) [place] % (Auto) Eos % (Auto) Baso % (Auto) Lymph # (Auto) [place] # (Auto) Eos # (Auto) Baso # (Auto) Abs Immat Gran (auto) Absolute Neuts (auto) Absolute Nucleated RBC Nucleated RBC % (auto) Smear Tech's Comments PT INR APTT Sodium Potassium Chloride Carbon Dioxide Anion Gap BUN Creatinine Estim Creat Clear Calc Estimated GFR POC Glucose 367 H* 339 H 224 H Random Glucose Osmolality Lactic Acid Calcium Magnesium Ferritin Total Bilirubin Direct Bilirubin AST ALT Alkaline Phosphatase Ammonia Lactate Dehydrogenase C-Reactive Protein B-Natriuretic Peptide Total Protein Albumin Lipase Procalcitonin Urine Color Urine Appearance Urine pH Ur Specific [place] Urine Protein Urine Glucose (UA) Urine Ketones Urine Blood Urine Nitrite Ur Leukocyte Esterase Urine RBC Urine WBC Ur Squamous Epith Cells Urine Bacteria COVID-19 (GUILLERMINA) COVID-19 [employer] 11/30/20 11/30/20 12/01/20 16:11 20:23 06:55 WBC Cancelled RBC Cancelled Hgb Cancelled Hct Cancelled MCV Cancelled MCH Cancelled MCHC Cancelled RDW Cancelled Plt Count Cancelled MPV Cancelled Immature Gran % (Auto) Cancelled Neut % (Auto) Cancelled Lymph % (Auto) Cancelled [place] % (Auto) Cancelled Eos % (Auto) Cancelled Baso % (Auto) Cancelled Lymph # (Auto) Cancelled [place] # (Auto) Cancelled Eos # (Auto) Cancelled Baso # (Auto) Cancelled Abs Immat Gran (auto) Cancelled Absolute Neuts (auto) Cancelled Absolute Nucleated RBC Cancelled Nucleated RBC % (auto) Cancelled Smear Tech's Comments PT INR APTT Sodium Potassium Chloride Carbon Dioxide Anion Gap BUN Creatinine Estim Creat Clear Calc Estimated GFR POC Glucose 235 H 262 H Random Glucose Osmolality Lactic Acid Calcium Magnesium Ferritin Total Bilirubin Direct Bilirubin AST ALT Alkaline Phosphatase Ammonia Lactate Dehydrogenase C-Reactive Protein B-Natriuretic Peptide Total Protein Albumin Lipase Procalcitonin Urine Color Urine Appearance Urine pH Ur Specific [place] Urine Protein Urine Glucose (UA) Urine Ketones Urine Blood Urine Nitrite Ur Leukocyte Esterase Urine RBC Urine WBC Ur Squamous Epith Cells Urine Bacteria COVID-19 (GUILLERMINA) COVID-19 Clin Com 12/01/20 12/01/20 12/01/20 06:55 07:46 11:00 WBC 6.7 RBC 3.38 L Hgb 10.4 L Hct 33.2 L MCV 98.2 H MCH 30.8 MCHC 31.3 RDW 13.2 Plt Count 204 MPV 10.2 Immature Gran % (Auto) 2.2 H Neut % (Auto) 60.2 Lymph % (Auto) 29.9 [place] % (Auto) 5.1 Eos % (Auto) 2.2 Baso % (Auto) 0.4 Lymph # (Auto) 2.0 [place] # (Auto) 0.3 Eos # (Auto) 0.2 Baso # (Auto) 0.0 Abs Immat Gran (auto) 0.15 H Absolute Neuts (auto) 4.0 Absolute Nucleated RBC 0.000 Nucleated RBC % (auto) 0.0 Smear Tech's Comments PT INR APTT Sodium 141 Potassium 4.6 Chloride 115 H Carbon Dioxide 14 L Anion Gap 17 BUN 10 Creatinine 1.00 Estim Creat Clear Calc 57.0 Estimated GFR 55 POC Glucose 286 H Random Glucose 312 H Osmolality Lactic Acid Calcium 7.2 L D Magnesium Ferritin Total Bilirubin Direct Bilirubin AST ALT Alkaline Phosphatase Ammonia Lactate Dehydrogenase C-Reactive Protein B-Natriuretic Peptide Total Protein Albumin Lipase Procalcitonin Urine Color Urine Appearance Urine pH Ur Specific [place] Urine Protein Urine Glucose (UA) Urine Ketones Urine Blood Urine Nitrite Ur Leukocyte Esterase Urine RBC Urine WBC Ur Squamous Epith Cells Urine Bacteria COVID-19 (GUILLERMINA) COVID-19 [employer] 12/01/20 12/01/20 12/01/20 11:49 16:54 20:18 WBC RBC Hgb Hct MCV MCH MCHC RDW Plt Count MPV Immature Gran % (Auto) Neut % (Auto) Lymph % (Auto) [place] % (Auto) Eos % (Auto) Baso % (Auto) Lymph # (Auto) [place] # (Auto) Eos # (Auto) Baso # (Auto) Abs Immat Gran (auto) Absolute Neuts (auto) Absolute Nucleated RBC Nucleated RBC % (auto) Smear Tech's Comments PT INR APTT Sodium Potassium Chloride Carbon Dioxide Anion Gap BUN Creatinine Estim Creat Clear Calc Estimated GFR POC Glucose 369 H* 228 H 192 H Random Glucose Osmolality Lactic Acid Calcium Magnesium Ferritin Total Bilirubin Direct Bilirubin AST ALT Alkaline Phosphatase Ammonia Lactate Dehydrogenase C-Reactive Protein B-Natriuretic Peptide Total Protein Albumin Lipase Procalcitonin Urine Color Urine Appearance Urine pH Ur Specific [place] Urine Protein Urine Glucose (UA) Urine Ketones Urine Blood Urine Nitrite Ur Leukocyte Esterase Urine RBC Urine WBC Ur Squamous Epith Cells Urine Bacteria COVID-19 (GUILLERMINA) COVID-19 [employer] 12/02/20 12/02/20 12/02/20 05:35 07:31 10:09 WBC RBC Hgb Hct MCV MCH MCHC RDW Plt Count MPV Immature Gran % (Auto) Neut % (Auto) Lymph % (Auto) [place] % (Auto) Eos % (Auto) Baso % (Auto) Lymph # (Auto) [place] # (Auto) Eos # (Auto) Baso # (Auto) Abs Immat Gran (auto) Absolute Neuts (auto) Absolute Nucleated RBC Nucleated RBC % (auto) Smear Tech's Comments PT INR APTT Sodium Cancelled 143 Potassium Cancelled 3.6 D Chloride Cancelled 112 H Carbon Dioxide Cancelled 22 Anion Gap Cancelled 13 BUN Cancelled 10 Creatinine Cancelled 1.13 Estim Creat Clear Calc Cancelled 50.3 Estimated GFR Cancelled 48 POC Glucose 194 H Random Glucose Cancelled 206 H Osmolality Lactic Acid Calcium Cancelled 7.6 L Magnesium Ferritin Total Bilirubin Direct Bilirubin AST ALT Alkaline Phosphatase Ammonia Lactate Dehydrogenase C-Reactive Protein B-Natriuretic Peptide Total Protein Albumin Lipase Procalcitonin Urine Color Urine Appearance Urine pH Ur Specific [place] Urine Protein Urine Glucose (UA) Urine Ketones Urine Blood Urine Nitrite Ur Leukocyte Esterase Urine RBC Urine WBC Ur Squamous Epith Cells Urine Bacteria COVID-19 (GUILLERMINA) COVID-19 [employer] 12/02/20 12/02/20 12/02/20 11:35 16:47 19:45 WBC RBC Hgb Hct MCV MCH MCHC RDW Plt Count MPV Immature Gran % (Auto) Neut % (Auto) Lymph % (Auto) [place] % (Auto) Eos % (Auto) Baso % (Auto) Lymph # (Auto) [place] # (Auto) Eos # (Auto) Baso # (Auto) Abs Immat Gran (auto) Absolute Neuts (auto) Absolute Nucleated RBC Nucleated RBC % (auto) Smear Tech's Comments PT INR APTT Sodium Potassium Chloride Carbon Dioxide Anion Gap BUN Creatinine Estim Creat Clear Calc Estimated GFR POC Glucose 174 H 155 H Random Glucose Osmolality Lactic Acid Calcium Magnesium Ferritin Total Bilirubin Direct Bilirubin AST ALT Alkaline Phosphatase Ammonia Lactate Dehydrogenase C-Reactive Protein B-Natriuretic Peptide Total Protein Albumin Lipase Procalcitonin Urine Color Urine Appearance Urine pH Ur Specific [place] Urine Protein Urine Glucose (UA) Urine Ketones Urine Blood Urine Nitrite Ur Leukocyte Esterase Urine RBC Urine WBC Ur Squamous Epith Cells Urine Bacteria COVID-19 (GUILLERMINA) Negative COVID-19 [employer] See Note 12/02/20 12/03/20 12/03/20 21:24 05:35 05:35 WBC 5.5 RBC 3.48 L Hgb 10.5 L Hct 34.8 L MCV 100.0 H MCH 30.2 MCHC 30.2 L RDW 13.4 Plt Count 229 MPV 10.2 Immature Gran % (Auto) Neut % (Auto) Lymph % (Auto) [place] % (Auto) Eos % (Auto) Baso % (Auto) Lymph # (Auto) [place] # (Auto) Eos # (Auto) Baso # (Auto) Abs Immat Gran (auto) Absolute Neuts (auto) Absolute Nucleated RBC 0.000 Nucleated RBC % (auto) 0.0 Smear Tech's Comments PT INR APTT Sodium 145 Potassium 3.6 Chloride 115 H Carbon Dioxide 22 Anion Gap 12 BUN 9 Creatinine 0.98 Estim Creat Clear Calc 58.1 Estimated GFR 56 POC Glucose 125 H Random Glucose 150 H Osmolality Lactic Acid Calcium 8.0 L Magnesium Ferritin Total Bilirubin Direct Bilirubin AST ALT Alkaline Phosphatase Ammonia Lactate Dehydrogenase C-Reactive Protein B-Natriuretic Peptide Total Protein Albumin Lipase Procalcitonin Urine Color Urine Appearance Urine pH Ur Specific [place] Urine Protein Urine Glucose (UA) Urine Ketones Urine Blood Urine Nitrite Ur Leukocyte Esterase Urine RBC Urine WBC Ur Squamous Epith Cells Urine Bacteria COVID-19 (GUILLERMINA) COVID-19 Clin Com 12/03/20 07:28 WBC RBC Hgb Hct MCV MCH MCHC RDW Plt Count MPV Immature Gran % (Auto) Neut % (Auto) Lymph % (Auto) [place] % (Auto) Eos % (Auto) Baso % (Auto) Lymph # (Auto) [place] # (Auto) Eos # (Auto) Baso # (Auto) Abs Immat Gran (auto) Absolute Neuts (auto) Absolute Nucleated RBC Nucleated RBC % (auto) Smear Tech's Comments PT INR APTT Sodium Potassium Chloride Carbon Dioxide Anion Gap BUN Creatinine Estim Creat Clear Calc Estimated GFR POC Glucose 145 H Random Glucose Osmolality Lactic Acid Calcium Magnesium Ferritin Total Bilirubin Direct Bilirubin AST ALT Alkaline Phosphatase Ammonia Lactate Dehydrogenase C-Reactive Protein B-Natriuretic Peptide Total Protein Albumin Lipase Procalcitonin Urine Color Urine Appearance Urine pH Ur Specific [place] Urine Protein Urine Glucose (UA) Urine Ketones Urine Blood Urine Nitrite Ur Leukocyte Esterase Urine RBC Urine WBC Ur Squamous Epith Cells Urine Bacteria COVID-19 (GUILLERMINA) COVID-19 Clin Com Discharge Plan Discharge Patient Disposition: Xfer SNF Referrals: [facility] [Outside] Matheus Gonzales MD [Primary Care Provider] - Discharge Medications: Continued insulin aspart U-100 [Novolog Flexpen U-100 Insulin] 100 unit/mL (3 mL) Insulin Pen See Rx Instructions .ROUTE .COMPLEX RF: 0 insulin detemir U-100 100 unit/mL (3 mL) Insulin Pen 32 unit SUBCUT BEDTIME RF: 0 atorvastatin 40 mg Tablet 40 mg PO BEDTIME RF: 0 sennosides [senna] 8.6 mg Tablet 17 mg PO BEDTIME RF: 0 calcium carbonate 500 mg calcium (1,250 mg) Tablet,Chewable 500 mg PO DAILY PRN (Reason: Acid Reflux) RF: 0 lithium carbonate 150 mg Capsule 150 mg PO BID RF: 0 carbamazepine 100 mg Tablet,Chewable 300 mg PO BID RF: 0 docusate sodium [Colace] 100 mg Capsule 100 mg PO BID RF: 0 metoprolol tartrate 25 mg Tablet 12.5 mg PO BID RF: 0 acetaminophen 325 mg Tablet 650 mg PO Q4H PRN (Reason: Pain) RF: 0 aspirin 81 mg Tablet,Chewable 81 mg PO BID RF: 0 Changed haloperidol 10 mg Tablet 10 mg PO BEDTIME Qty: 0 RF: 0 Discharge Orders: Discharge Order (Routine); Ordered 12/03/20 Ordered By: Cuba Pierce Diet: advance to usual diet Activity on Discharge: As tolerated Stand Alone Forms: Patient Portal Discharge page Care Plan Goals: Read below Health Concerns: Read below Plan of Treatment: You were admitted to the hospital for evaluation of altered mentation as a result of urine tract infection and sepsis. Your treated with IV antibiotics with good response as urine culture grew E coli bacteria. You finish total of 7 days of IV antibiotics with good response. You were noticed to be dehydrated with acute kidney injury and elevated sodium level which as a result of dehydration was treated with IV fluid. It was a result of altered mentation which was a result of having infection, kidney injury and multiple medications. Your kidney function and sodium returned back to normal. Haldol was decreased to 10 mg at bedtime
[2020-12-03 11:51] LABS: Glucose, Whole Blood 160 mg/dL (60-115)
[2020-12-03 12:00] VITALS: BP 151/61; PULSE 72; RESP 20; TEMP 36.7; O2SAT 96
--- NOTE | 2020-12-03 12:00 | MHC.CLN ---
F/U PO INTAKE 25% AVG DIET RX: 1800DM 2GM NA GRD M/S-APPROPRIATE DIET UPGRADED IN CONSISTENCY PER METEOROLOGY INSTRUCTOR 12/[address] TO SUPPORT WOUND HEALING MONITOR PO INTAKE
[2020-12-03] MEDS: Insulin Lispro 100 UNIT/ML 3 ML VIAL SUBCUT (12:08)
== END 2020-12-03 13:29 | disposition skilled nursing facility (03) | DRG 871 ==
LOC: HO.ED 16:47 → HO.EDOVER 20:41 → HO.IMC 11-26 07:24
PROVIDERS: Nurse Practitioner Acute Care; Physician Assistant; Admitting Provider Internal Medicine; Emergency Provider Emergency Medicine; PCP Internal Medicine; Visit Provider Student in an Organized Health Care Education/Training Program
DX: A41.9 Sepsis, unspecified organism (principal); U07.1 COVID-19; G92 Toxic encephalopathy; N39.0 Urinary tract infection, site not specified; N17.9 Acute kidney failure, unspecified; E87.0 Hyperosmolality and hypernatremia; I69.954 Hemiplegia and hemiparesis following unspecified cerebrovascular disease affecting left non-dominant side; I25.10 Atherosclerotic heart disease of native coronary artery without angina pectoris; I25.2 Old myocardial infarction; B96.20 Unspecified Escherichia coli [E. coli] as the cause of diseases classified elsewhere; I69.920 Aphasia following unspecified cerebrovascular disease; E86.0 Dehydration; E78.5 Hyperlipidemia, unspecified; E87.6 Hypokalemia; I12.9 Hypertensive chronic kidney disease with stage 1 through stage 4 chronic kidney disease, or unspecified chronic kidney disease; E11.22 Type 2 diabetes mellitus with diabetic chronic kidney disease; N18.9 Chronic kidney disease, unspecified; Z20.822 Contact with and (suspected) exposure to COVID-19; Z79.4 Long term (current) use of insulin; Z79.82 Long term (current) use of aspirin; Z79.899 Other long term (current) drug therapy
CPT/HCPCS: 11104; 36415; 36600; 70450; 71045; 74176; 80048; 80076; 81001; 82140; 82728; 82947; 83605; 83615; 83690; 83735; 83880; 83930; 84145; 85025; 85027; 85610; 85730; 86140; 87040; 87086; 87088; 87186; 87635; 92526; 92610; 93005; 96374; 99285; J0692; J0696